=== PATIENT | female | born 1960 | race Caucasian/White ===

== ENCOUNTER 2022-09-02 11:06 | Outpatient (CLI) | payer BC, OTHER, SELFPAY ==
--- NOTE | ~2022-09-02 | CT_ITS ---
EXAMINATION: CT foot LT wo con DATE: 09/02/2022 11:32 INDICATION: Left foot pain TECHNIQUE: High resolution computed tomography (CT) of the left foot and ankle was performed without intravenous contrast. Additional sagittal and coronal reconstructions were performed. Automated expos ure control and iterative reconstruction technique were employed. The dose-length product was 402.27 mGy-cm. COMPARISON: None FINDINGS: Nondisplaced intra-articular fracture along the plantar margin of the base of the first metatarsal an d adjacent plantar rim of the medial cuneiform. Mildly impacted mildly comminuted intra-articular fra cture at the base of the second metatarsal and the adjacent lateral margin of the dorsal rim of the m edial cuneiform. Nondisplaced intra-articular fracture at the base of the third metatarsal. No other fractures identified. Alignment remains near-anatomic. No subluxation at the tarsal metatarsal joints . 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 Mild subcu taneous edema over the dorsum of the mid and forefoot. IMPRESSION: 1. Nondisplaced fractures at the base of the first-third metatarsals and along the distal articular s urface of the medial cuneiform. Reviewed, dictated and finalized at location A. IMPRESSION: 1. Nondisplaced fractures at the base of the first-third metatarsals and along the distal articular surface of the medial cuneiform.
== END 2022-09-02 11:07 | disposition home or self-care (01) ==
PROVIDERS: PCP Internal Medicine
DX: S92.315A Nondisplaced fracture of first metatarsal bone, left foot, initial encounter for closed fracture (principal); S92.325A Nondisplaced fracture of second metatarsal bone, left foot, initial encounter for closed fracture; S92.335A Nondisplaced fracture of third metatarsal bone, left foot, initial encounter for closed fracture; X58.XXXA Exposure to other specified factors, initial encounter
CPT/HCPCS: 73700

== ENCOUNTER 2023-07-26 02:12 | Emergency (ER) | payer OTHER, SELFPAY ==
--- NOTE | ~2023-07-26 | CT_ITS ---
EXAMINATION: CT abdomen pelvis w con DATE: 07/26/2023 03:34 INDICATION: Right-sided abdominal pain for 2 days TECHNIQUE: Computed tomography (CT) of the abdomen and pelvis was performed with 100 CC Omnipaque 350 intravenous contrast. Automated exposure control and iterative reconstruction technique were employe d. Exam dose: 372.84 mGy-cm total exam DLP. COMPARISON: None. FINDINGS: Minimal predominantly basilar lower lobe atelectasis at the lung bases. No pulmonary consol idation. Normal heart size. No pericardial or pleural effusion. Very small sliding hiatal hernia. Bilateral breast implants. There is a calcified granuloma of the liver and another of the spleen consistent with old granulomato us disease. No hepatic, splenic, pancreatic, adrenal or renal space occupying mass lesion is detected . 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 No urinary tract calculus or hydr oureteronephrosis. The urinary bladder, uterus and adnexal regions are unremarkable. Normal caliber of the abdominal aorta. No intraperitoneal or retroperitoneal or pelvic mass lesion or adenopathy or ascites is noted. Normal appendix. No bowel obstruction, bowel wall thickening, pneumatosis or intraperitoneal free air is detected. Small fat-containing umbilical hernia. Moderate anterior wedge compression fracture deformity of T12 appears chronic. Moderate severe anterior wedge compression fracture deformity of L5 likewise appears chronic. IMPRESSION: Normal appendix Likely chronic moderate T12 and moderately severe L5 compression fractures Reviewed, dictated and finalized at Location A. Reviewed, dictated and finalized at location A.
[2023-07-26 02:17] VITALS: BP 167/69; PULSE 68; RESP 18; O2SAT 100
[2023-07-26 02:31] VITALS: BP 167/69; PULSE 78; RESP 18; TEMP 36.9; O2SAT 100
[2023-07-26] MEDS: MORPHINE SULFATE (*CRX) 4 MG/ML INJ IV PUSH (02:34)
[2023-07-26] MEDS: ONDANSETRON INJ 4 MG/2 ML VIAL IV PUSH (02:34)
[2023-07-26] MEDS: SODIUM CHLORIDE 0.9% IV 1,000 ML 999 ML IV CONT (02:35)
[2023-07-26 02:37] LABS: Basophils Percent Auto 0.4 % (0.2-1.2); Eosinophils Absolute Auto 0.5 K/mm3 (0-0.3); Eosinophils Percent Auto 7.4 % (0-4.4); Hematocrit 45.2 % (37.0-47.0); Hemoglobin 14.3 g/dL (12.0-15.0); Immature Granulocyte Absolute 0.01 K/mm3 (0.00-0.031); Immature Granulocyte Percent A 0.1 % (0-0.5); Lymphocytes Absolute Auto 1.94 K/mm3 (0.9-3.2); Lymphocytes Percent Auto 27.5 % (18.3-44.2); Mean Corpuscular HGB Conc 31.6 g/dl (32-36); Mean Corpuscular Hemoglobin 29.5 pg (26-34); Mean Corpuscular Volume 93.2 fl (80-100); Mean Platelet Volume 10.4 fl (7.4-10.4); Monocytes Absolute Auto 0.6 K/mm3 (0.1-0.6); Monocytes Percent Auto 8.8 % (2.6-8.5); Neutrophils Absolute Auto 3.9 K/mm3 (1.3-6.7); Neutrophils Percent Auto 55.8 % (45.5-73.1); Platelet Count Result 280 k/mm3 (150-375); Red Blood Count 4.85 M/mm3 (4.2-5.4); Red Cell Distribution Width 13.2 % (11.5-14.5); White Blood Count 7.1 K/mm3 (4.5-10.0)
[2023-07-26 02:46] LABS: Lactic Acid Reflex 1.1 mmol/L (0.7-2.0)
[2023-07-26 03:00] VITALS: BP 135/69; PULSE 68; RESP 18; O2SAT 100
[2023-07-26 03:16] LABS: Alanine Aminotransferase 14 U/L (6-35); Albumin Level 4.1 g/dL (3.5-5.1); Alkaline Phosphatase 92 U/L (38-126); Anion Gap 5 mmol/L (4-12); Aspartate Amino Transferase 17 U/L (14-36); Bilirubin,Total 0.4 mg/dL (0.2-1.3); Blood Urea Nitrogen 13 mg/dL (7-17); Calcium 8.9 mg/dL (8.4-10.2); Carbon Dioxide 29 mmol/L (22-30); Chloride 107 mmol/L (98-107); Estimated CRCL calculation 60 ml/min; Estimated Glomerular Filt Rate > 60; Glucose 101 mg/dL (65-110); Lipase 114 U/L (23-300); Potassium 4.1 mmol/L (3.4-5.0); Sodium 141 mmol/L (137-145)
[2023-07-26 03:32] LABS: Appearance Urine Clear (Clear); Bacteria Urine None Seen /hpf; Bilirubin Urine Negative (Negative); Blood Urine Negative (Negative); Color Urine Yellow (Yellow); Glucose Urine UA Negative (Negative); Ketones Urine Negative (Negative); Leukocyte Esterase Ur 1+ LEU/UL (Negative); Need Manual Microscopic Reviewed; Nitrate Urine Negative (Negative); Non Pathogenic Casts 0-2; Protein Urine Negative (Negative); RBC Urine 0-2 /hpf (0-2); Specific Grav Ur 1.006 (1.001-1.035); Squamous Epithelial Cell Urine None Seen /hpf (Few); Urobilinogen Urine 0.2 mg/dL (<2.0); WBC Urine 0-5 /hpf (0-3)
[2023-07-26 03:33] LABS: Add Urine Microscopic? YES
--- NOTE | 2023-07-26 04:12 | ED.GENADULT ---
HPI - General Adult General Chief complaint: Abdominal Pain Stated complaint: abd pain Time Seen by Provider: 07/26/23 02:17 History of Present Illness HPI narrative: Patient is a 63-year-old female who presents emergency department with chief complaint of abdominal pain. Patient reports that for several days she has 7 pain in the right upper quadrant radiating to the back patient reports that the pain is not improved by anything denies vomiting denies diarrhea patient reports no prior intra-abdominal surgeries Related Data Allergies Allergy/AdvReac Type Severity Reaction Status Date / Time Sulfa (Sulfonamide Allergy Intermediate VOMITING Verified 03/25/16 17:43 Antibiotics) MEPERIDINE HCL AdvReac Unknown NAUSEA/VOMI Uncoded 03/25/16 17:43 TING Review of Systems Review of Systems: A 10 system review of systems was completed on the patient and is negative except for what is stated in the HPI. Nursing and ancillary documentation was reviewed. PMFSH Comments mastectomy Exam Narrative: GENERAL: Well-appearing, well-nourished, and in no acute distress. HEAD: Normocephalic, atraumatic. EYES: PERRLA and EOMI. ENT: Nares clear, no rhinorrhea or epistaxis. Mucous membranes moist. NECK: Supple. CHEST: Clear to auscultation. No respiratory distress. HEART: Regular rate and rhythm. No murmur heard. Normal peripheral pulses. ABDOMEN: Soft, tenderness to palpation right upper quadrant, nondistended, normal active bowel sounds. EXTREMITIES: Normal range of motion. No edema. SKIN: Warm, dry, no rash. NEURO: No focal deficits. Alert and oriented x3. PSYCH: Normal mood and affect. Course Vital Signs Vital signs: Vital Signs Pulse Rate 68 07/26/23 02:17 Respiratory Rate 18 07/26/23 02:17 Blood Pressure 167/69 H 07/26/23 02:17 Pulse Oximetry 100 07/26/23 02:17 Temperature 36.9 C 07/26/23 02:31 Pulse Rate 64 07/26/23 05:37 Respiratory Rate 14 07/26/23 05:37 Blood Pressure 128/61 07/26/23 05:37 Pulse Oximetry 100 07/26/23 05:37 Oxygen Delivery Room Air 07/26/23 02:31 Medical Decision Making [facility] Narrative Medical decision making narrative: differential diagnosis includes diverticulitis, colitis, cholecystitis, intra-abdominal infection laboratory studies were obtained on the patient showed a white count of 7.1 hemoglobin is 14.3 electrolytes are within normal limits liver enzymes are within normal limits lipase was normal urinalysis showed no evidence UTI CT scan of the abdomen pelvis showed no acute abnormality patient was started on a prescription for Bentyl and will be referred to her primary care provider to follow up. The patient should return to the emergency department if her symptoms worsen Vital Signs Vital Signs: Vital Signs Pulse Rate 68 07/26/23 02:17 Respiratory Rate 18 07/26/23 02:17 Blood Pressure 167/69 H 07/26/23 02:17 Pulse Oximetry 100 07/26/23 02:17 Temperature 36.9 C 07/26/23 02:31 Pulse Rate 64 07/26/23 05:37 Respiratory Rate 14 07/26/23 05:37 Blood Pressure 128/61 07/26/23 05:37 Pulse Oximetry 100 07/26/23 05:37 Oxygen Delivery Room Air 07/26/23 02:31 Lab Data 07/26/23 02:28 07/26/23 02:53 Labs: Lab Results 07/26/23 07/26/23 07/26/23 Range/Units 02:28 02:53 02:54 WBC 7.1 (4.5-10.0) K/mm3 RBC 4.85 (4.2-5.4) M/mm3 Hgb 14.3 (12.0-15.0) g/dL Hct 45.2 (37.0-47.0) % MCV 93.2 (80-100) fl MCH 29.5 (26-34) pg MCHC 31.6 L (32-36) g/dl RDW 13.2 (11.5-14.5) % Plt Count 280 (150-375) k/mm3 MPV 10.4 (7.4-10.4) fl Immature Gran % (Auto) 0.1 (0-0.5) % Neut % (Auto) 55.8 (45.5-73.1) % Lymph % (Auto) 27.5 (18.3-44.2) % [place] % (Auto) 8.8 H (2.6-8.5) % Eos % (Auto) 7.4 H (0-4.4) % Baso % (Auto) 0.4 (0.2-1.2) % Lymph # (Auto) 1.94 (0.9-3.2) K/mm3 [place] # (Auto) 0.6 (0.1
[2023-07-26 05:37] VITALS: BP 128/61; PULSE 64; RESP 14; O2SAT 100
== END 2023-07-26 06:07 | disposition home or self-care (01) ==
PROVIDERS: Emergency Provider Emergency Medicine; PCP Internal Medicine
DX: R10.11 Right upper quadrant pain (principal)
CPT/HCPCS: 36415; 74177; 80053; 81001; 83605; 83690; 85025; 96361; 96374; 96375; 99284; J2270; J2405; J7030; Q9967

== ENCOUNTER 2023-07-26 22:20 | Observation (INO) | payer OTHER, SELFPAY ==
--- NOTE | ~2023-07-26 | CT_ITS ---
EXAMINATION: CTA abdomen pelvis DATE: 07/27/2023 14:14 INDICATION: Abdominal pain. Nausea and vomiting. TECHNIQUE: Computed tomographic angiography (CTA) of the abdomen and pelvis was performed with 100 mL Omnipaque-350 intravenous contrast. Automated exposure control and iterative reconstruction techniqu e were employed. The dose-length product was 433.05 mGy-cm. Maximum intensity projection 3D-reconstru ctions of the aorta and other arteries were constructed by the technologist on a separate workstation . COMPARISON: CT abdomen and pelvis 07/26/2023 FINDINGS: The visualized portions of the lung bases demonstrate mild atelectasis. No pleural effusion . The heart size is normal. No pericardial effusion. There are bilateral breast implants. The liver i s normal. Calcifications in the spleen are consistent with old granulomatous disease. There is contra st in the gallbladder, which is normal in size. The adrenal glands, pancreas, and kidneys are normal. There are no dilated loops of bowel. The appendix is normal. Subcutaneous fat stranding may be secon tiffanie to abdominoplasty. There are no pathologically enlarged lymph nodes. There is no free intraperit monae fluid. There is new subcutaneous gas in right anterior abdominal wall, which may be from an inj ection. Abdominal aorta is normal in caliber. There is no significant stenosis of celiac axis, superi or mesenteric artery, the renal arteries, or inferior mesenteric artery. There is a chronic compressi on fracture of T12. There is a chronic burst fracture of L5. There is mild lumbar spondylosis. IMPRESSION: 1. No significant arterial occlusive disease. Reviewed, dictated and finalized at location E.
--- NOTE | ~2023-07-26 | NM_ITS ---
EXAMINATION: NM hepatobiliary w pharm DATE: 07/29/2023 10:24 INDICATION: Right upper quadrant abdominal pain. COMPARISON: CT abdomen and pelvis 07/27/2023 TECHNIQUE: 5.5 mCi Tc-99m mebrofenin (Choletec) was administered intravenously. Scintigraphic images of the abdomen were obtained for one hour. Then, 1.4 mcg sincalide (Kinevac) IV was administered, an d imaging was continued for 30 minutes. FINDINGS: There is normal clearance of radiotracer from the blood pool. There is homogeneous tracer u ptake by the liver. Activity progresses to the bowel and gallbladder. Gallbladder ejection fraction (GBEF) was 25%. Note that most patients with gallbladder dysfunction have GBEF < 35%, which overlaps with the broad normal range of 10-90%. IMPRESSION: 1. Gallbladder ejection fraction in the lower range of normal. Note that this value overlaps with th e range of values that may be seen with gallbladder dysfunction and/or chronic cholecystitis if there is appropriate clinical correlation. Reviewed, dictated and finalized at location A. IMPRESSION: 1. Gallbladder ejection fraction in the lower range of normal. Note that this value overlaps with the range of values that may be seen with gallbladder dysfu nction and/or chronic cholecystitis if there is appropriate clinical correlatio nZac
--- NOTE | ~2023-07-26 | US_ITS ---
US abdomen limited INDICATION: Right upper quadrant pain PROCEDURE: Realtime right upper abdominal ultrasound. COMPARISON: No prior studies for comparison. FINDINGS: The pancreas is normal without focal mass or pancreatic ductal dilation. Liver echotexture is normal without focal mass or intrahepatic biliary dilatation. There is normal directional flow i n the portal vein. The gallbladder is normal without stones, gallbladder wall thickening or pericholecystic fluid. Comm on bile duct measures 2 mm. No sonographic Frias's sign. IMPRESSION: 1: Normal limited abdominal ultrasound. Reviewed, dictated and finalized at location B.
--- NOTE | ~2023-07-26 | MR_ITS ---
EXAMINATION: MR lumbar spine wo con DATE: 07/29/2023 11:56 INDICATION: Back pain. TECHNIQUE: Magnetic resonance imaging (MRI) of the lumbar spine was performed without intravenous con trast. Sequences included sagittal T2-weighted FSE, sagittal T2-weighted FS FSE, sagittal T1-weighted FSE, and axial T2-weighted FSE. COMPARISON: None FINDINGS: There is 10 degrees dextroscoliosis of lumbar spine. There is a chronic compression fractur e of T12 with 1/5 loss of height. There is a chronic burst fracture of L5 with 2/5 loss of height and retropulsion of bone 2 mm into central spinal canal. Intervertebral disc heights are normal. The dis bishop spinal cord signal intensity is normal. The conus medullaris is at L1. The following disc levels are specifically discussed: L1-L2: The disc does not extend beyond the endplate margin. There is mild bilateral facet joint osteo arthritis. There is no neural foraminal stenosis. There is no central canal stenosis. L2-L3: The disc does not extend beyond the endplate margin. There is severe bilateral facet joint ost eoarthritis. There is no neural foraminal stenosis. There is no central canal stenosis. L3-L4: The disc does not extend beyond the endplate margin. There is moderate right and mild left fac et joint osteoarthritis. There is no neural foraminal stenosis. There is no central canal stenosis. L4-L5: The disc is bulging. There is moderate bilateral facet joint osteoarthritis. There is moderate right and mild left neural foraminal stenosis. There is mild central canal stenosis. L5-S1: The disc does not extend beyond the endplate margin. There is mild bilateral facet joint osteo arthritis. There is no neural foraminal stenosis. There is no central canal stenosis. IMPRESSION: 1. Moderate right neural foraminal stenosis at L4-L5. Otherwise mild lumbar spondylosis. 2. Lumbar dextroscoliosis. Reviewed, dictated and finalized at location A. IMPRESSION: 1. Moderate right neural foraminal stenosis at L4-L5. Otherwise mild lumbar spo ndylosis. 2. Lumbar dextroscoliosis.
[2023-07-26 22:22] VITALS: BP 162/67; PULSE 72; RESP 18; TEMP 36.3; O2SAT 100
[2023-07-26 22:49] LABS: Alanine Aminotransferase 16 U/L (6-35); Albumin Level 4.6 g/dL (3.5-5.1); Alkaline Phosphatase 109 U/L (38-126); Anion Gap 6 mmol/L (4-12); Aspartate Amino Transferase 20 U/L (14-36); Bilirubin,Total 0.6 mg/dL (0.2-1.3); Blood Urea Nitrogen 9 mg/dL (7-17); Calcium 9.1 mg/dL (8.4-10.2); Carbon Dioxide 27 mmol/L (22-30); Chloride 103 mmol/L (98-107); Estimated CRCL calculation 67 ml/min; Estimated Glomerular Filt Rate > 60; Glucose 123 mg/dL (65-110); Lipase 110 U/L (23-300); Potassium 4.2 mmol/L (3.4-5.0); Sodium 136 mmol/L (137-145)
[2023-07-26] MEDS: MORPHINE SULFATE (*CRX) 4 MG/ML INJ IV PUSH (23:30)
[2023-07-26] MEDS: ONDANSETRON INJ 4 MG/2 ML VIAL IV PUSH (23:30)
[2023-07-26] MEDS: SODIUM CHLORIDE 0.9% IV 1,000 ML 999 ML IV CONT (23:30)
[2023-07-26 23:36] LABS: Basophils Percent Auto 0.2 % (0.2-1.2); Eosinophils Absolute Auto 0.2 K/mm3 (0-0.3); Eosinophils Percent Auto 2.5 % (0-4.4); Hematocrit 43.7 % (37.0-47.0); Immature Granulocyte Absolute 0.03 K/mm3 (0.00-0.031); Immature Granulocyte Percent A 0.4 % (0-0.5); Lymphocytes Absolute Auto 1.21 K/mm3 (0.9-3.2); Lymphocytes Percent Auto 14.1 % (18.3-44.2); Mean Corpuscular Hemoglobin 29.6 pg (26-34); Mean Corpuscular Volume 92.4 fl (80-100); Mean Platelet Volume 10.6 fl (7.4-10.4); Monocytes Absolute Auto 0.4 K/mm3 (0.1-0.6); Monocytes Percent Auto 4.2 % (2.6-8.5); Neutrophils Absolute Auto 6.7 K/mm3 (1.3-6.7); Neutrophils Percent Auto 78.6 % (45.5-73.1); Platelet Count Result 287 k/mm3 (150-375); Red Blood Count 4.73 M/mm3 (4.2-5.4); Red Cell Distribution Width 12.8 % (11.5-14.5); White Blood Count 8.6 K/mm3 (4.5-10.0)
--- NOTE | 2023-07-27 00:37 | ED.ABDPAIN ---
HPI - Abdominal Pain General Chief Complaint: Abdominal Pain Stated Complaint: abdominal pain/ back pain Time Seen by Provider: 07/26/23 23:13 History of Present Illness HPI narrative: patient is 81-year-old female presents emergency department with chief complaint of right upper quadrant pain. Patient reports she was seen in the emergency department yesterday and was actually seen by myself. That time the patient had laboratory studies UA and CT scan that showed no acute abnormalities. The patient does report that she has prior history of compression fractures in her back. Patient denies rash denies fever reports that today she started having nausea vomiting and not been able to keep fluids down. Related Data Allergies Allergy/AdvReac Type Severity Reaction Status Date / Time Sulfa (Sulfonamide Allergy Intermediate VOMITING Verified 03/25/16 17:43 Antibiotics) MEPERIDINE HCL AdvReac Unknown NAUSEA/VOMI Uncoded 03/25/16 17:43 TING Review of Systems Review of Systems: A 10 system review of systems was completed on the patient and is negative except for what is stated in the HPI. Nursing and ancillary documentation was reviewed. Exam Narrative: GENERAL: Well-appearing, well-nourished, and in no acute distress. HEAD: Normocephalic, atraumatic. EYES: PERRLA and EOMI. ENT: Nares clear, no rhinorrhea or epistaxis. Mucous membranes moist. NECK: Supple. CHEST: Clear to auscultation. No respiratory distress. HEART: Regular rate and rhythm. No murmur heard. Normal peripheral pulses. ABDOMEN: Soft, Tenderness palpation the right upper quadrant, nondistended, normal active bowel sounds. EXTREMITIES: Normal range of motion. No edema. SKIN: Warm, dry, no rash. NEURO: No focal deficits. Alert and oriented x3. PSYCH: Normal mood and affect. Course Vital Signs Vital signs: Vital Signs Temperature 36.3 C L 07/26/23 22:22 Pulse Rate 72 07/26/23 22:22 Respiratory Rate 18 07/26/23 22:22 Blood Pressure 162/67 H 07/26/23 22:22 Pulse Oximetry 100 07/26/23 22:22 Oxygen Delivery Room Air 07/26/23 22:22 Temperature 36.3 C L 07/26/23 22:22 Pulse Rate 72 07/26/23 22:22 Respiratory Rate 18 07/26/23 22:22 Blood Pressure 162/67 H 07/26/23 22:22 Pulse Oximetry 100 07/26/23 22:22 Oxygen Delivery Room Air 07/26/23 22:22 MDM - Abdominal Pain MDM Narrative Medical decision making narrative: differential diagnosis includes shingles, biliary colic, abdominal pain of unknown etiology, sepsis laboratory studies were obtained on the patient showed normal CBC normal CMP lipase was normal. The CT was reviewed from yesterday which showed no additional abnormalities from a with the [facility] radiologist read the CT scan. The patient was given pain control antiemetics fluids. Given the patient has returned to the emergency department patient will be admitted for observation for right upper quadrant ultrasound Lab Data 07/26/23 22:33 07/26/23 22:34 Labs: Lab Results 07/26/23 07/26/23 Range/Units 22:33 22:34 WBC 8.6 (4.5-10.0) K/mm3 RBC 4.73 (4.2-5.4) M/mm3 Hgb 14.0 (12.0-15.0) g/dL Hct 43.7 (37.0-47.0) % MCV 92.4 (80-100) fl MCH 29.6 (26-34) pg MCHC 32.0 (32-36) g/dl RDW 12.8 (11.5-14.5) % Plt Count 287 (150-375) k/mm3 MPV 10.6 H (7.4-10.4) fl Immature Gran % (Auto) 0.4 (0-0.5) % Neut % (Auto) 78.6 H (45.5-73.1) % Lymph % (Auto) 14.1 L (18.3-44.2) % [place] % (Auto) 4.2 (2.6-8.5) % Eos % (Auto) 2.5 (0-4.4) % Baso % (Auto) 0.2 (0.2-1.2) % Lymph # (Auto) 1.21 (0.9-3.2) K/mm3 [place] # (Auto) 0.4 (0.1-0.6) K/mm3 Eos # (Auto) 0.2 (0-0.3) K/mm3 Baso # (Auto) 0.0 (0.0-0.1) K/mm3 Abs Immat Gran (auto) 0.03 (0.00-0.031) K/mm3 Absolute Neuts (auto) 6.7 (1.3-6.7) K/mm3 Absolute Nucleated RBC 0.000 (0.0-0.012) K/mm3 Nucleated RBC % 0.0 (0.0-0.2) % So
--- NOTE | 2023-07-27 00:42 | PM.IMHP ---
H&P: HPI History of Present Illness Date/Time: 07/27/23 00:42 Chief Complaint: abdominal pain Narrative: patient is a 63-year-old female presented to the emergency room complaining of right upper quadrant pain. Patient was seen in the emergency room yesterday as well with a similar complaint was sent home but she came back because of worsening abdominal pain with nausea no vomiting no chest pain no shortness for breath no skin rash or or indigestion. Patient defines pain mostly in the right upper quadrant on deep palpation no previous history of gallstones or pancreatitis in the past Review of Systems Review of Systems: All systems reviewed & are unremarkable except as noted in HPI and below PMFSH Social History Social History Smoking status: Never smoker Second hand tobacco smoke exposure: No Alcohol intake: never Substance use: never Substance use type: does not use Do You Feel Safe in your Home?: Yes Lack of Transportation: No Lack of Food: Never True Current Housing: I Have Housing Concerned About Future Housing: No Difficulty Paying Gas/Electric Bills: No Difficulty Paying for Meds: No Currently Unemployed: No Education: High School Diploma/GED Difficulty w/ Childcare or Family Care: No Spiritual care concerns: No Meds Home Medications and Allergies Home Medications Medication Instructions Recorded Confirmed Type dicyclomine 20 mg tablet 20 mg PO QID PRN abdominal 07/26/23 07/27/23 Rx discomfort #20 tabs ondansetron 4 mg disintegrating 4 mg PO Q8H PRN nausea and 07/26/23 07/27/23 Rx tablet vomiting #10 tabs meloxicam 7.5 mg tablet 7.5 mg PO DAILY 07/27/23 07/27/23 History rosuvastatin 5 mg tablet (Crestor) 5 mg PO DAILY 07/27/23 07/27/23 History Allergies Allergy/AdvReac Type Severity Reaction Status Date / Time Sulfa (Sulfonamide Allergy Intermediate VOMITING Verified 03/25/16 17:43 Antibiotics) MEPERIDINE HCL AdvReac Unknown NAUSEA/VOMI Uncoded 03/25/16 17:43 TING Vital Signs Vital Signs - 24 hr 07/26/23 22:22 Temperature 36.3 C L Pulse Rate 72 Respiratory Rate 18 Blood Pressure 162/67 H Pulse Oximetry 100 Oxygen Delivery Room Air Exam Narrative: GENERAL: Well appearing, no acute distress. HEAD: Normocephalic, atraumatic. NECK: Supple. No adenopathy, no masses. RESPIRATORY: respirations nonlabored. , no rales, wheezing. CARDIOVASCULAR: Regular rate and rhythm without murmurs, . Peripheral pulses 2+ and equal bilaterally. ABDOMINAL: Soft, right upper quadrant tender, nondistended, no hepatosplenomegaly. Normoactive BS. MUSCULOSKELETAL: no Epigastric and no hypochondrial tenderness SKIN: Warm, dry, NEURO: A&O X3. Moves all extremities H&P: Results Labs Labs: Short CBC 07/26/23 Range/Units 22:33 WBC 8.6 (4.5-10.0) K/mm3 Hgb 14.0 (12.0-15.0) g/dL Hct 43.7 (37.0-47.0) % Plt Count 287 (150-375) k/mm3 BMP 07/26/23 22:34 Sodium 136 L Potassium 4.2 Chloride 103 Carbon Dioxide 27 BUN 9 Creatinine 0.70 Glucose 123 H Calcium 9.1 Liver Function 07/26/23 Range/Units 22:34 Total Bilirubin 0.6 (0.2-1.3) mg/dL AST 20 (14-36) U/L ALT 16 (6-35) U/L Alkaline Phosphatase 109 (38-126) U/L Albumin 4.6 (3.5-5.1) g/dL Imaging CT scan - abdomen: My impression: IMPRESSION:? Normal appendix Likely chronic moderate T12 and moderately severe L5 compression fractures Assessment and Plan Assessment and plan (1) Right upper quadrant abdominal pain: Code(s): R10.11 - Right upper quadrant pain Status: Acute Plan acute cholecystitis versus cholelithiasis IV fluid resuscitation Monitor lactic acid levels Repeat CBC CMP Two sets of Blood cultures urine cultures C-reactive protein, procalcitonin level. ultrasound of the gallbladder IV antibiotics Zosyn may need surgical con
[2023-07-27] MEDS: PIPERACILLN/TAZ 3.375GM/NS50ML 3.375 GM/50 ML BAG IVPB ×2 (01:11→08:25)
[2023-07-27] MEDS: SODIUM CHLORIDE 0.9% IV 1,000 ML 125 ML IV CONT ×3 (01:11→20:21)
[2023-07-27 01:30] VITALS: BP 143/65; PULSE 83; RESP 14; O2SAT 98
[2023-07-27 02:10] VITALS: BP 126/63; PULSE 64; RESP 20; TEMP 36.6; O2SAT 100
[2023-07-27 02:12] VITALS: BMI 26.9; BMI 27.6
[2023-07-27] MEDS: MORPHINE SULFATE (*CRX) 2 MG/ML INJ IV PUSH ×5 (02:24→20:22)
[2023-07-27 05:41] LABS: Alanine Aminotransferase 12 U/L (6-35); Albumin Level 3.7 g/dL (3.5-5.1); Alkaline Phosphatase 79 U/L (38-126); Anion Gap 7 mmol/L (4-12); Aspartate Amino Transferase 19 U/L (14-36); Bilirubin,Total 0.6 mg/dL (0.2-1.3); Blood Urea Nitrogen 7 mg/dL (7-17); Calcium 8.2 mg/dL (8.4-10.2); Carbon Dioxide 22 mmol/L (22-30); Chloride 110 mmol/L (98-107); Estimated CRCL calculation 78 ml/min; Estimated Glomerular Filt Rate > 60; Glucose 100 mg/dL (65-110); Potassium 4.1 mmol/L (3.4-5.0); Sodium 139 mmol/L (137-145)
[2023-07-27 06:00] VITALS: BP 108/62; PULSE 62; RESP 20; TEMP 36.2; O2SAT 97
--- NOTE | 2023-07-27 07:28 | PM.IMPN ---
Progress Note: A&P Assessment and Plan (1) Right upper quadrant abdominal pain: Code(s): R10.11 - Right upper quadrant pain Status: Acute Assessment and Plan: Unclear etiology. Complains of right upper quadrant abdominal pain that travels to her back with nausea and vomiting. White blood cell count normal Lactic acid was normal Lipase normal CT abdomen and pelvis non con was normal Right upper quadrant ultrasound normal CTA abdomen and pelvis ordered Morphine p.r.n. and Bentyl for pain Zofran and Compazine p.r.n. for pain IV fluids at 125 mL an hour Stopped antibiotics as patient does not have a white count and no evidence of infection on imaging Low suspicion for a cardiac insult but given lack of clear etiology will check troponin and EKG GI consulted and rec's appreciated. May need EGD? (2) HTN (hypertension): Code(s): I10 - Essential (primary) hypertension Status: Acute Assessment and Plan: Elevated blood pressure on admission. 167/69. suspect pain related patient does not have a history of high blood pressure and her blood pressures are normal stop metoprolol (3) Compression fracture: Status: Acute Assessment and Plan: history of severe compression fracture L5 patient is advised to get a DEXA scan and consult pain clinic Plan Feeding: NPO Analgesia: morphine Thromboembolic prophylaxis: Lovenox Ulcer prophylaxis: Protonix Lines: PIV Antibiotics: na Disposition: home when clinically better Subjective Date/time seen: 07/27/23 07:28 Interval history: Patient is a 63-year-old female presented to the emergency room complaining of right upper quadrant pain.? Patient was seen in the emergency room yesterday as well with a similar complaint was sent home but she came back because of worsening abdominal pain with nausea no vomiting no chest pain no shortness for breath no skin rash or? or indigestion.? Patient defines pain mostly in the right upper quadrant on deep palpation no previous history of gallstones or pancreatitis? in the past. 07/26: Patient is seen today resting in bed with her son and at bedside. She appears unwell. She states she is continuing to have this right lateral abdominal pain that travels to her back with associated nausea and dry heaving. She is receiving pain medications and nausea medications that are helping but her symptoms are not improving. CT of her abdomen from 07/25 with no acute process. Her right upper quadrant ultrasound was negative for acute cholecystitis for bile duct dilatation. Her lipase and lactic were both negative on admission. Will proceed with CT angiogram of her abdomen and pelvis to rule out mesenteric clot. Given unclear etiology of her pain and nausea, vomiting I will go ahead and check a troponin and EKG. I have also reached out to GI to ask them for a consult. Patient may need EGD to help with differential diagnosis. Review of Systems Review of Systems: All systems reviewed & are unremarkable except as noted in HPI and below Exam Narrative: General: Appears unwell, appears in pain, appears stated age. HEENT: normocephalic, atraumatic. Mucous membranes dry, EOMI, PERRLA, bilateral sclera anicteric, no conjunctival injection. Neck supple without JVD, lymphadenopathy, or bruit. Respiratory: clear to auscultation bilaterally. No rales/rhonic/wheezes. Cardiovascular: Regular rate and rhythm, normal S1-S2 upon auscultation. No murmurs, rubs, or clicks. PMI is nondisplaced, capillary refill less than 3 second. Abdomen: Soft, round, no pulsatile masses, nondistended and moderately tender to right upper quadrant radiating to back.. No rebound, no guarding. No CVA tenderness, no hepatosplenomegaly. Bowel sounds present to all four quadrants. No high pitch or tinkling sounds, resonant to percussion. Extremities: No cyanosis, clubbing, or edema present. Pulses are palpable 2/2. Active ROM to all
[2023-07-27] MEDS: ENOXAPARIN 40 MG/0.4 ML SYRINGE SUB-Q (08:25)
[2023-07-27] MEDS: ROSUVASTATIN 5 MG TABLET PO (08:25)
[2023-07-27] MEDS: ONDANSETRON INJ 4 MG/2 ML VIAL IV PUSH ×2 (09:36→13:33)
[2023-07-27 13:50] VITALS: BP 138/61; PULSE 69; RESP 18; TEMP 36.6; O2SAT 99
--- NOTE | 2023-07-27 14:13 | ECG_ITS ---
[facility] [address] Test Date: 2023-07-27 Pat Name: Daysi Rodriguez Department: Room: 252 Gender: F Site Engineer: ELOINA : 1960 Requested By: Rupa Miller Order Number: [id number] Wade MD: Devon Carbajal M.D. Measurements Intervals [place] Rate: 68 P: 49 NE: 168 QRS: 58 QRSD: 96 T: 39 QT: 411 QTc: 437 Interpretive Statements SINUS RHYTHM POSSIBLE RIGHT VENTRICULAR CONDUCTION DELAY [RSR (QR) IN V1/V2] BORDERLINE ECG No previous ECG available for comparison Electronically Signed On 07-28-2023 07:18:55 CDT by Devon Carbajal M.D.
[2023-07-27] MEDS: PROCHLORPERAZINE EDISYLATE 10 MG/2 ML VIAL IV PUSH ×2 (14:34→20:21)
[2023-07-27] MEDS: PANTOPRAZOLE SODIUM IV 40 MG VIAL IV PUSH (14:38)
[2023-07-27 14:42] LABS: Lactic Acid Reflex 1.3 mmol/L (0.7-2.0)
[2023-07-27 14:54] LABS: Troponin I < 0.012 ng/mL (0.000-0.034)
[2023-07-27 19:40] VITALS: PULSE 67; RESP 19; O2SAT 98
[2023-07-27] MEDS: DICYCLOMINE HCL 10 MG CAPSULE 20 MG PO (20:28)
[2023-07-27 21:20] VITALS: BP 135/64; PULSE 68; RESP 18; TEMP 36.4; O2SAT 98
[2023-07-28] VITALS (9 sets, daily range): BP systolic 138–158; BP diastolic 60–70; PULSE 75–81; RESP 16–19; TEMP 35.7–37.1; O2SAT 98–100
[2023-07-28] MEDS: SODIUM CHLORIDE 0.9% IV 1,000 ML 125 ML IV CONT ×3 (04:46→20:40)
[2023-07-28] MEDS: ACETAMINOPHEN 325 MG TABLET 650 MG PO (04:47)
[2023-07-28] MEDS: DICYCLOMINE HCL 10 MG CAPSULE 20 MG PO (04:47)
[2023-07-28 05:31] LABS: Basophils Percent Auto 0.2 % (0.2-1.2); Eosinophils Absolute Auto 0.1 K/mm3 (0-0.3); Eosinophils Percent Auto 0.7 % (0-4.4); Hematocrit 38.6 % (37.0-47.0); Hemoglobin 12.5 g/dL (12.0-15.0); Immature Granulocyte Absolute 0.02 K/mm3 (0.00-0.031); Immature Granulocyte Percent A 0.2 % (0-0.5); Lymphocytes Absolute Auto 1.38 K/mm3 (0.9-3.2); Lymphocytes Percent Auto 17.1 % (18.3-44.2); Mean Corpuscular HGB Conc 32.4 g/dl (32-36); Mean Corpuscular Hemoglobin 29.8 pg (26-34); Mean Corpuscular Volume 91.9 fl (80-100); Mean Platelet Volume 10.7 fl (7.4-10.4); Monocytes Absolute Auto 0.7 K/mm3 (0.1-0.6); Monocytes Percent Auto 8.2 % (2.6-8.5); Neutrophils Absolute Auto 5.9 K/mm3 (1.3-6.7); Neutrophils Percent Auto 73.6 % (45.5-73.1); Platelet Count Result 231 k/mm3 (150-375); Red Cell Distribution Width 12.6 % (11.5-14.5); White Blood Count 8.1 K/mm3 (4.5-10.0)
[2023-07-28 05:41] LABS: Alanine Aminotransferase 13 U/L (6-35); Albumin Level 3.6 g/dL (3.5-5.1); Alkaline Phosphatase 89 U/L (38-126); Anion Gap 4 mmol/L (4-12); Aspartate Amino Transferase 16 U/L (14-36); Bilirubin,Total 0.5 mg/dL (0.2-1.3); Blood Urea Nitrogen 8 mg/dL (7-17); Calcium 8.2 mg/dL (8.4-10.2); Carbon Dioxide 25 mmol/L (22-30); Chloride 110 mmol/L (98-107); Cholesterol 167 mg/dL (0-200); Estimated CRCL calculation 78 ml/min; Estimated Glomerular Filt Rate > 60; Glucose 90 mg/dL (65-110); HDL Direct 58 mg/dL; Magnesium 1.9 mg/dL (1.6-2.3); Potassium 3.4 mmol/L (3.4-5.0); Sodium 139 mmol/L (137-145); Triglycerides 88 mg/dL (<150)
[2023-07-28 05:52] LABS: LDL Cholesterol Direct 86 mg/dL
[2023-07-28] MEDS: MORPHINE SULFATE (*CRX) 2 MG/ML INJ IV PUSH ×3 (06:48→20:41)
[2023-07-28] MEDS: ONDANSETRON INJ 4 MG/2 ML VIAL IV PUSH ×3 (06:55→20:40)
--- NOTE | 2023-07-28 07:04 | PM.IMPN ---
Progress Note: A&P Assessment and Plan (1) Right upper quadrant abdominal pain: Code(s): R10.11 - Right upper quadrant pain Status: Acute Assessment and Plan: Unclear etiology. Complains of right upper quadrant abdominal pain that travels to her back with nausea and vomiting. White blood cell count normal Lactic acid was normal Lipase normal CT abdomen and pelvis non con was normal Right upper quadrant ultrasound normal CTA abdomen and pelvis ordered Morphine p.r.n. and Bentyl for pain Zofran and Compazine p.r.n. for pain IV fluids at 125 mL an hour Stopped antibiotics as patient does not have a white count and no evidence of infection on imaging Low suspicion for a cardiac insult but given lack of clear etiology will check troponin and EKG GI consulted and rec's appreciated. May need EGD? 07/27: EGD today was normal. Biopsies were taken. Continues to have moderate to severe RUQ pain traveling to her back morphine prn IVF continue prn zofran and compazine for nausea (2) Compression fracture: Status: Acute Assessment and Plan: history of severe compression fracture L5 patient is advised to get a DEXA scan and consult pain clinic 07/27: MR of thoracic and lumbar spine today Added Toradol to see if this helps with her pain CRP ordered May need brace depending on what imaging shows She has had a DEXA scan in the past which showed osteopenia but no osteoporosis. Plan Feeding: NPO Analgesia: morphine Thromboembolic prophylaxis: Lovenox Ulcer prophylaxis: Protonix Lines: PIV Antibiotics: na Disposition: home when clinically better Subjective Date/time seen: 07/28/23 07:04 Interval history: Patient is a 63-year-old female presented to the emergency room complaining of right upper quadrant pain.? Patient was seen in the emergency room yesterday as well with a similar complaint was sent home but she came back because of worsening abdominal pain with nausea no vomiting no chest pain no shortness for breath no skin rash or? or indigestion.? Patient defines pain mostly in the right upper quadrant on deep palpation no previous history of gallstones or pancreatitis? in the past. 07/26: Patient is seen today resting in bed with her son and at bedside. She appears unwell. She states she is continuing to have this right lateral abdominal pain that travels to her back with associated nausea and dry heaving. She is receiving pain medications and nausea medications that are helping but her symptoms are not improving. CT of her abdomen from 07/25 with no acute process. Her right upper quadrant ultrasound was negative for acute cholecystitis for bile duct dilatation. Her lipase and lactic were both negative on admission. Will proceed with CT angiogram of her abdomen and pelvis to rule out mesenteric clot. Given unclear etiology of her pain and nausea, vomiting I will go ahead and check a troponin and EKG. I have also reached out to GI to ask them for a consult. Patient may need EGD to help with differential diagnosis. 07/27: Mrs. Rodriguez continues to have RUQ abdominal pain that radiates to her back and nausea. She tried not taking her IV morphine to make sure the pain was still occurring and she ended up having return of the RUQ/back pain. She appears tired and weak. She had her EGD which was normal. Biopsies were take. Dr Mabry did mention possible etiology of pain could be stemming from her chronic fractures to T12 and L5. The plan as of now is to proceed with a HIDA scan and we can also get MR imaging of her lumbar and thoracic spine. Review of Systems Review of Systems: All systems reviewed & are unremarkable except as noted in HPI and below Exam Narrative: General: Appears unwell, appears in pain, appears stated age. HEENT: normocephalic, atraumatic. Mucous membranes dry, EOMI, PERRLA, bilateral sclera anicteric, no conjunctival injection. Neck supple wit
--- NOTE | 2023-07-28 08:36 | WPDGICN ---
Assessment and Plan Assessment and plan (1) Right upper quadrant abdominal pain: Code(s): R10.11 - Right upper quadrant pain Status: Acute (2) Right flank pain: Code(s): R10.9 - Unspecified abdominal pain Status: Acute (3) Nausea and vomiting: Qualifiers: Vomiting type: unspecified Qualified Code(s): R11.2 - Nausea with vomiting, unspecified Code(s): R11.2 - Nausea with vomiting, unspecified Status: Acute Plan 1) RUQ abdominal pain/nausea/vomiting: Last EGD performed approximately 5 years ago at [facility] at which time patient states she had a large gastric polyp removed? Patients sister carries a diagnosis of Crohn's disease. Patient was seen in the emergency room on July 25 for similar complaints but her symptoms became worse and she came back to the emergency room yesterday. Patient with acute onset of right upper quadrant / right flank pain since . She describes this pain as a constant stabbing sensation that has no correlation with food intake. On Friday she started having nausea and vomiting but states that it was more dry heaves, the symptoms have improved since admission. Imaging including CT, CT, and ultrasound have all been unremarkable. BMP, CBC, LFTs, and lipase all normal. Keep patient NPO EGD today if EGD is unremarkable may consider HIDA scan further recommendations to follow endoscopy 2) Personal Hx of colon polyps: Per patient's last colonoscopy performed 5 years ago at [facility] by Dr. Nettles at which time she had colon polyps removed but these endoscopy reports are not available during today's visit family history negative for CRC but her sister carries a diagnosis of Crohn's disease. She is having 1-2 formed non urgent bowel movements daily and denies any alarm symptoms such as weight loss, change in bowel habits, or rectal bleeding. Patient to proceed with colonoscopy with Dr. Nettles as outpatient Thank you very much for allowing me to share in the care of this very nice patient. This report may have been done utilizing a voice recognition system. Attempts have been made to correct errors. However, there may be uncorrected grammatical, spelling, and recognition errors present. GI Consult Note Consult date/time: 07/28/23 08:36 Reason for consult: abdominal pain HPI: Daysi Rodriguez is a 63 year old female with HTN and breast cancer requiring a double mastectomy, surgery, and chemotherapy in 2017. She presented to the ER yesterday with complaints of RUQ pain, nausea and vomiting. She was seen in the ER the day prior with similar complaints. GI was consulted for abdominal pain. Patient states that on she had an acute onset of right upper quadrant pain that radiated to her right flank. She describes this pain as a constant stabbing sensation has no correlation with food intake. On Friday she started experiencing nausea and vomiting but states that it was more dry heaving, nausea and dry heaving has improved since admission. She denies abdominal bloating, odynophagia, dysphagia, reflux, regurgitation, early satiety, unexplained weight loss, appetite loss. She is having 1-2 formed non urgent bowel movements daily prior to admission. Denies diarrhea, constipation, hematochezia, or melena she uses Advil as needed few times monthly but denies any aspirin or other anticoagulant use. ENDOSCOPY HISTORY: EGD: Per patient's last EGD performed approximately 5 years ago at [facility] and she believes she had a large gastric polyp removed, but these reports are not available today's visit COLONOSCOPY: Per patient's last colonoscopy performed 5 years ago at [facility] at which time she had polyps removed. Patient states that she is due for a 5 year repeat colonoscopy with Dr. Nettles. COLONOSCOPY: 01/20/2013 (Dr. Boudreaux) for CRC screening in the ileum, no abnor
[2023-07-28] MEDS: ENOXAPARIN 40 MG/0.4 ML SYRINGE SUB-Q (08:49)
[2023-07-28] MEDS: PANTOPRAZOLE SODIUM IV 40 MG VIAL IV PUSH (08:49)
[2023-07-28] MEDS: LACTATED RINGERS 1,000 ML 150 ML IV CONT (10:55)
--- NOTE | 2023-07-28 11:33 | WPDANESEPPF ---
Anes - Initial Pre Proc Eval Procedure: Operation Date: 07/28/23 17:00 Proposed Procedures p Esophagogastroduodenoscopy - Tanner Mckenzie MD Date/Time: 07/28/23 11:33 Surgeon: Rupa Major APRN Pre Op Diagnosis: right upper quadrant abominal pain Patient Data Age: 63 Gender: F Height: 1.6 m Weight: 70.8 kg Last Vital Signs Temp 97.1 F L 07/28/23 11:00 Pulse 78 07/28/23 11:00 Resp 19 07/28/23 11:00 BP 158/63 H 07/28/23 11:00 Pulse Ox 100 07/28/23 11:00 O2 Del Method Room Air 07/28/23 11:00 Allergies Allergy/AdvReac Type Severity Reaction Status Date / Time Sulfa (Sulfonamide Allergy Intermediate VOMITING Verified 07/28/23 10:56 Antibiotics) MEPERIDINE HCL AdvReac Unknown NAUSEA/VOMI Uncoded 07/28/23 10:56 TING Home Medications Medication Instructions Recorded Confirmed Type dicyclomine 20 mg tablet 20 mg PO QID PRN abdominal 07/26/23 07/27/23 Rx discomfort #20 tabs ondansetron 4 mg disintegrating 4 mg PO Q8H PRN nausea and 07/26/23 07/27/23 Rx tablet vomiting #10 tabs meloxicam 7.5 mg tablet 7.5 mg PO DAILY 07/27/23 07/27/23 History rosuvastatin 5 mg tablet (Crestor) 5 mg PO DAILY 07/27/23 07/27/23 History Laboratory Tests 07/27/23 07/28/23 14:28 04:56 WBC 8.1 K/mm3 (4.5-10.0) RBC 4.20 M/mm3 (4.2-5.4) Hgb 12.5 g/dL (12.0-15.0) Hct 38.6 % (37.0-47.0) MCV 91.9 fl (80-100) MCH 29.8 pg (26-34) MCHC 32.4 g/dl (32-36) RDW 12.6 % (11.5-14.5) Plt Count 231 k/mm3 (150-375) MPV 10.7 H fl (7.4-10.4) Immature Gran % (Auto) 0.2 % (0-0.5) Neut % (Auto) 73.6 H % (45.5-73.1) Lymph % (Auto) 17.1 L % (18.3-44.2) [place] % (Auto) 8.2 % (2.6-8.5) Eos % (Auto) 0.7 % (0-4.4) Baso % (Auto) 0.2 % (0.2-1.2) Lymph # (Auto) 1.38 K/mm3 (0.9-3.2) [place] # (Auto) 0.7 H K/mm3 (0.1-0.6) Eos # (Auto) 0.1 K/mm3 (0-0.3) Baso # (Auto) 0.0 K/mm3 (0.0-0.1) Abs Immat Gran (auto) 0.02 K/mm3 (0.00-0.031) Absolute Neuts (auto) 5.9 K/mm3 (1.3-6.7) Absolute Nucleated RBC 0.000 K/mm3 (0.0-0.012) Nucleated RBC % 0.0 % (0.0-0.2) Sodium 139 mmol/L (137-145) Potassium 3.4 mmol/L (3.4-5.0) Chloride 110 H mmol/L (98-107) Carbon Dioxide 25 mmol/L (22-30) Anion Gap 4 mmol/L (4-12) BUN 8 mg/dL (7-17) Creatinine 0.60 L mg/dL (0.7-1.0) Estim Creat Clear Calc 78 ml/min Estimated GFR > 60 (59 - ) Glucose 90 mg/dL (65-110) Lactic Acid 1.3 mmol/L (0.7-2.0) Calcium 8.2 L mg/dL (8.4-10.2) Magnesium 1.9 mg/dL (1.6-2.3) Total Bilirubin 0.5 mg/dL (0.2-1.3) AST 16 U/L (14-36) ALT 13 U/L (6-35) Alkaline Phosphatase 89 U/L (38-126) Troponin I < 0.012 ng/mL (0.000-0.034) Total Protein 6.0 L g/dL (6.3-8.2) Albumin 3.6 g/dL (3.5-5.1) Triglycerides 88 mg/dL (<150) Cholesterol 167 mg/dL (0-200) LDL Cholesterol Direct 86 mg/dL HDL Direct 58 mg/dL Patient hx anesthesia problems: none Family hx anesthesia problems: none Results Review: All pre-operative results and documents have been reviewed as part of the pre-operative evaluation. [facility]LY [facility] Past Medical History Medical History (Updated 07/28/23 @ 10:15 by Ernestine Juarez APRN) Breast cancer Hyperlipidemia Surgical History Surgical History (Updated 07/27/23 @ 14:37 by Rupa Major APRN) History of mastectomy, total Social History Social History Smoking status: Never smoker Second hand tobacco smoke exposure: No Alcohol intake: never Substance use: never Substance use type: does not use Do You Feel Safe in your Home?: Yes Lack of Transportation
--- NOTE | 2023-07-28 12:25 | PC.NURSE ---
pt returned to room from GI lab, reviewed orders and plan of care, call to [place] about planned hyda scan, it will be tomorrow a.m, pt provided with menu and she will order something light
--- NOTE | 2023-07-28 14:50 | PC.NURSE ---
pt had previously received morphine, reviewed MD order for toradol
[2023-07-28] MEDS: KETOROLAC 30 MG/ML VIAL (*BKC) IV PUSH (14:52)
[2023-07-28 17:03] LABS: CRP < 0.5 mg/dL (<1.0)
[2023-07-29] VITALS: BP 150/74; PULSE 62; RESP 18; TEMP 35.8; O2SAT 100
[2023-07-29] MEDS: MORPHINE SULFATE (*CRX) 2 MG/ML INJ IV PUSH ×5 (01:50→22:20)
[2023-07-29] MEDS: ONDANSETRON INJ 4 MG/2 ML VIAL IV PUSH ×3 (01:51→17:45)
[2023-07-29 04:45] VITALS: BP 147/64; PULSE 73; RESP 18; TEMP 36; O2SAT 100
[2023-07-29 05:49] LABS: Basophils Percent Auto 0.3 % (0.2-1.2); Eosinophils Absolute Auto 0.2 K/mm3 (0-0.3); Eosinophils Percent Auto 3.1 % (0-4.4); Hematocrit 38.1 % (37.0-47.0); Hemoglobin 11.9 g/dL (12.0-15.0); Immature Granulocyte Absolute 0.02 K/mm3 (0.00-0.031); Immature Granulocyte Percent A 0.3 % (0-0.5); Lymphocytes Absolute Auto 1.67 K/mm3 (0.9-3.2); Lymphocytes Percent Auto 25.8 % (18.3-44.2); Mean Corpuscular HGB Conc 31.2 g/dl (32-36); Mean Corpuscular Hemoglobin 29.8 pg (26-34); Mean Corpuscular Volume 95.5 fl (80-100); Mean Platelet Volume 10.2 fl (7.4-10.4); Monocytes Absolute Auto 0.6 K/mm3 (0.1-0.6); Monocytes Percent Auto 9.1 % (2.6-8.5); Neutrophils Percent Auto 61.4 % (45.5-73.1); Platelet Count Result 227 k/mm3 (150-375); Red Blood Count 3.99 M/mm3 (4.2-5.4); Red Cell Distribution Width 12.4 % (11.5-14.5); White Blood Count 6.5 K/mm3 (4.5-10.0)
[2023-07-29 06:02] LABS: Alanine Aminotransferase 12 U/L (6-35); Albumin Level 3.7 g/dL (3.5-5.1); Alkaline Phosphatase 79 U/L (38-126); Anion Gap 5 mmol/L (4-12); Aspartate Amino Transferase 17 U/L (14-36); Bilirubin,Total 0.4 mg/dL (0.2-1.3); Blood Urea Nitrogen 8 mg/dL (7-17); Carbon Dioxide 24 mmol/L (22-30); Chloride 108 mmol/L (98-107); Estimated CRCL calculation 68 ml/min; Estimated Glomerular Filt Rate > 60; Glucose 87 mg/dL (65-110); Potassium 3.3 mmol/L (3.4-5.0); Sodium 137 mmol/L (137-145)
--- NOTE | 2023-07-29 07:44 | P.PNIM_ITS ---
Progress Note: A&P Assessment and Plan (1) Right upper quadrant abdominal pain: Code(s): R10.11 - Right upper quadrant pain Status: Acute Assessment and Plan: Unclear etiology. Complains of right upper quadrant abdominal pain that travels to her back with nausea and vomiting. * White blood cell count normal * Lactic acid was normal * Lipase normal * CT abdomen and pelvis non con was normal * Right upper quadrant ultrasound normal * CTA abdomen and pelvis ordered * Morphine p.r.n. and Bentyl for pain * Zofran and Compazine p.r.n. for pain * IV fluids at 125 mL an hour * Stopped antibiotics as patient does not have a white count and no evidence of infection on imaging * Low suspicion for a cardiac insult but given lack of clear etiology will check troponin and EKG * GI consulted and rec's appreciated. May need EGD? 07/27: * EGD today was normal. Biopsies were taken. * Continues to have moderate to severe RUQ pain traveling to her back * morphine prn * IVF continue * prn Zofran and Compazine for nausea 07/28: * HIDA scan today shows decreased gallbladder ejection fraction of 25%. * She has persistent nausea, vomiting, and abdominal pain * She received zofran and morphine again overnight * Surgery is consulted * White count remains normal (2) Compression fracture: Status: Acute Assessment and Plan: history of severe compression fracture L5 patient is advised to get a DEXA scan and consult pain clinic 07/27: * Added Toradol to see if this helps with her pain * CRP ordered and is normal * fractures are chronic per rads report * She has had a DEXA scan in the past which showed osteopenia but no osteoporosis. Plan Feeding: regular Analgesia: morphine Thromboembolic prophylaxis: Lovenox Ulcer prophylaxis: Protonix Lines: PIV Antibiotics: na Disposition: home when clinically better Subjective Date/time seen: 07/29/23 07:44 Interval history: Patient is a 63-year-old female presented to the emergency room complaining of right upper quadrant pain.? Patient was seen in the emergency room yesterday as well with a similar complaint was sent home but she came back because of worsening abdominal pain with nausea no vomiting no chest pain no shortness for breath no skin rash or? or indigestion.? Patient defines pain mostly in the right upper quadrant on deep palpation no previous history of gallstones or reza creatitis? in the past. 07/26: Patient is seen today resting in bed with her son and at bedside. She appears unwell. She states she is continuing to have this right lateral abdominal pain that travels to her back with associated nausea and dry heaving. She is receiving pain medications and nausea medications that are helping but her symptoms are not improving. CT of her abdomen from 07/25 with no acute process. Her right upper quadrant ultrasound was negative for acute cholecystitis for bile duct dilatation. Her lipase and lactic were both negative on admission. Will proceed with CT angiogram of her abdomen and pelvis to rule out mesenteric clot. Given unclear etiology of her pain and nausea, vomiting I will go ahead and check a troponin and EKG. I have also reached out to GI to ask them for a consult. Patient may need EGD to help with differential diagnosis. 07/27: Mrs. Rodriguez continues to have RUQ abdominal pain that radiates to her back and nausea. She tried not taking her IV morphine to make sure the pain was still occurring and she ended up having return of the RUQ/back pain. She appears tired and weak. She had her EGD which was normal. Biopsies w
--- NOTE | 2023-07-29 07:44 | PM.IMPN ---
Progress Note: A&P Assessment and Plan (1) Right upper quadrant abdominal pain: Code(s): R10.11 - Right upper quadrant pain Status: Acute Assessment and Plan: Unclear etiology. Complains of right upper quadrant abdominal pain that travels to her back with nausea and vomiting. White blood cell count normal Lactic acid was normal Lipase normal CT abdomen and pelvis non con was normal Right upper quadrant ultrasound normal CTA abdomen and pelvis ordered Morphine p.r.n. and Bentyl for pain Zofran and Compazine p.r.n. for pain IV fluids at 125 mL an hour Stopped antibiotics as patient does not have a white count and no evidence of infection on imaging Low suspicion for a cardiac insult but given lack of clear etiology will check troponin and EKG GI consulted and rec's appreciated. May need EGD? 07/27: EGD today was normal. Biopsies were taken. Continues to have moderate to severe RUQ pain traveling to her back morphine prn IVF continue prn Zofran and Compazine for nausea 07/28: HIDA scan today shows decreased gallbladder ejection fraction of 25%. She has persistent nausea, vomiting, and abdominal pain She received zofran and morphine again overnight Surgery is consulted White count remains normal (2) Compression fracture: Status: Acute Assessment and Plan: history of severe compression fracture L5 patient is advised to get a DEXA scan and consult pain clinic 07/27: Added Toradol to see if this helps with her pain CRP ordered and is normal fractures are chronic per rads report She has had a DEXA scan in the past which showed osteopenia but no osteoporosis. Plan Feeding: regular Analgesia: morphine Thromboembolic prophylaxis: Lovenox Ulcer prophylaxis: Protonix Lines: PIV Antibiotics: na Disposition: home when clinically better Subjective Date/time seen: 07/29/23 07:44 Interval history: Patient is a 63-year-old female presented to the emergency room complaining of right upper quadrant pain.? Patient was seen in the emergency room yesterday as well with a similar complaint was sent home but she came back because of worsening abdominal pain with nausea no vomiting no chest pain no shortness for breath no skin rash or? or indigestion.? Patient defines pain mostly in the right upper quadrant on deep palpation no previous history of gallstones or pancreatitis? in the past. 07/26: Patient is seen today resting in bed with her son and at bedside. She appears unwell. She states she is continuing to have this right lateral abdominal pain that travels to her back with associated nausea and dry heaving. She is receiving pain medications and nausea medications that are helping but her symptoms are not improving. CT of her abdomen from 07/25 with no acute process. Her right upper quadrant ultrasound was negative for acute cholecystitis for bile duct dilatation. Her lipase and lactic were both negative on admission. Will proceed with CT angiogram of her abdomen and pelvis to rule out mesenteric clot. Given unclear etiology of her pain and nausea, vomiting I will go ahead and check a troponin and EKG. I have also reached out to GI to ask them for a consult. Patient may need EGD to help with differential diagnosis. 07/27: Mrs. Rodriguez continues to have RUQ abdominal pain that radiates to her back and nausea. She tried not taking her IV morphine to make sure the pain was still occurring and she ended up having return of the RUQ/back pain. She appears tired and weak. She had her EGD which was normal. Biopsies were take. Dr Mabry did mention possible etiology of pain could be stemming from her chronic fractures to T12 and L5. The plan as of now is to proceed with a HIDA scan and we can also get MR imaging of her lumbar and thoracic spine. 07/28: HIDA scan completed this morning and does show delayed gallbladder emptying. Given the fact that she has persistent abdominal
[2023-07-29] MEDS: KETOROLAC 30 MG/ML VIAL (*BKC) IV PUSH (08:09)
--- NOTE | 2023-07-29 08:42 | WPDANESPN ---
Anes - Prog Note Post-Op Date/Time: 07/29/23 08:42 Cardiovascular status: normal Respiratory status: normal Airway patency: baseline Mental status: baseline Post-Op hydration status: normal Vital Signs: Last Vital Signs Temp 36.0 C L 07/29/23 04:45 Pulse 73 07/29/23 04:45 Resp 18 07/29/23 04:45 BP 147/64 H 07/29/23 04:45 Pulse Ox 100 07/29/23 04:45 O2 Del Method Room Air 07/28/23 20:00 Pain Score (VAS): 04/05 I/O: Intake & Output 07/28/23 07/29/23 07/29/23 23:59 07:59 15:59 Intake Total 1119.2 120 Output Total 1600 Balance -480.8 120 Laboratory Tests 07/29/23 05:34 07/29/23 05:34 07/28/23 07/29/23 04:52 05:34 WBC 6.5 RBC 3.99 L Hgb 11.9 L Hct 38.1 MCV 95.5 MCH 29.8 MCHC 31.2 L RDW 12.4 Plt Count 227 MPV 10.2 Immature Gran % (Auto) 0.3 Neut % (Auto) 61.4 Lymph % (Auto) 25.8 [place] % (Auto) 9.1 H Eos % (Auto) 3.1 Baso % (Auto) 0.3 Lymph # (Auto) 1.67 [place] # (Auto) 0.6 Eos # (Auto) 0.2 Baso # (Auto) 0.0 Abs Immat Gran (auto) 0.02 Absolute Neuts (auto) 4.0 Absolute Nucleated RBC 0.000 Nucleated RBC % 0.0 Sodium 137 Potassium 3.3 L Chloride 108 H Carbon Dioxide 24 Anion Gap 5 BUN 8 Creatinine 0.70 Estim Creat Clear Calc 68 Estimated GFR > 60 Glucose 87 Calcium 8.0 L Total Bilirubin 0.4 AST 17 ALT 12 Alkaline Phosphatase 79 C-Reactive Protein < 0.5 Total Protein 6.0 L Albumin 3.7 Microbiology 07/27/23 01:10 Clean Catch Midstream Urine Culture - Final Post-procedural complaints: none Patient Feedback: Patient satisfied with anesthetic care.
[2023-07-29 10:00] VITALS: BP 146/66; PULSE 75; RESP 21; TEMP 36.9; O2SAT 100
[2023-07-29] MEDS: ENOXAPARIN 40 MG/0.4 ML SYRINGE SUB-Q (10:07)
[2023-07-29] MEDS: PANTOPRAZOLE SODIUM IV 40 MG VIAL IV PUSH (10:07)
[2023-07-29] MEDS: POTASSIUM CHLORIDE INJ 40 MEQ in SODIUM CHLORIDE 0.9% IV 500 ML 130 MEQ IVPB (10:08)
[2023-07-29] MEDS: PROCHLORPERAZINE EDISYLATE 10 MG/2 ML VIAL IV PUSH ×2 (12:02→22:18)
--- NOTE | 2023-07-29 15:03 | PM.CNGS ---
Assessment and Plan Assessment and plan (1) Chronic cholecystitis: Code(s): K81.1 - Chronic cholecystitis Status: Acute Assessment and Plan: symptoms consistent with chronic cholecystitis, biliary colic with reproduction of symptoms during HIDA, will proceed with urgent cholecystectomy History of Present Illness Consult details Consult date: 07/29/23 Reason for consult: abdominal pain Requesting physician: Rupa Major APRN Narrative: The patient is a 63-year-old female that presented to the hospital complaining of right upper quadrant abdominal pain, nausea. The patient reports that the symptoms have been ongoing for the last week. Patient reports that the pain is worse after or attempting to eat. Workup, including imaging, been largely unremarkable. The patient did get a HIDA scan today that reproduced her symptoms and showed a low ejection fraction. Of note, the patient reports a family history of gallbladder disease in her family. The patient reports that she is still largely unable to eat secondary to pain and nausea. The patient also complains of bloating. Review of Systems Review of Systems: All systems reviewed & are unremarkable except as noted in HPI and below PMFSH Past Medical History Medical History Breast cancer Hyperlipidemia Surgical History Surgical History History of mastectomy, total Social History Social History Smoking status: Never smoker Second hand tobacco smoke exposure: No Alcohol intake: never Substance use: never Substance use type: does not use Do You Feel Safe in your Home?: Yes Lack of Transportation: No Lack of Food: Never True Current Housing: I Have Housing Concerned About Future Housing: No Difficulty Paying Gas/Electric Bills: No Difficulty Paying for Meds: No Currently Unemployed: No Education: High School Diploma/GED Difficulty w/ Childcare or Family Care: No Spiritual care concerns: No Comments FH - biliary dz Meds Home Medications and Allergies Home Medications Medication Instructions Recorded Confirmed Type dicyclomine 20 mg tablet 20 mg PO QID PRN abdominal 07/26/23 07/27/23 Rx discomfort #20 tabs ondansetron 4 mg disintegrating 4 mg PO Q8H PRN nausea and 07/26/23 07/27/23 Rx tablet vomiting #10 tabs meloxicam 7.5 mg tablet 7.5 mg PO DAILY 07/27/23 07/27/23 History rosuvastatin 5 mg tablet (Crestor) 5 mg PO DAILY 07/27/23 07/27/23 History Allergies Allergy/AdvReac Type Severity Reaction Status Date / Time Sulfa (Sulfonamide AdvReac Intermediate VOMITING Verified 07/28/23 13:50 Antibiotics) meperidine AdvReac Unknown Nausea and Verified 07/28/23 13:50 Vomiting Vital Signs Vital Signs - 24 hr 07/28/23 16:00 07/28/23 20:22 07/28/23 20:00 Temperature 37.1 C 35.7 C L Pulse Rate 78 76 76 Respiratory Rate 16 18 18 Blood Pressure 145/61 H 152/69 H Pulse Oximetry 98 99 99 Oxygen Delivery Room Air 07/29/23 00:00 07/29/23 04:45 07/29/23 10:00 Temperature 35.8 C L 36.0 C L 36.9 C Pulse Rate 62 73 75 Respiratory Rate 18 18 21 H Blood Pressure 150/74 H 147/64 H 146/66 H Pulse Oximetry 100 100 100 Oxygen Delivery 07/29/23 08:00 Temperature Pulse Rate Respiratory Rate Blood Pressure Pulse Oximetry Oxygen Delivery Room Air Exam Const: General: cooperative, no acute distress and uncomfortable HENMT: Head: normal to inspection, normocephalic and atraumatic Eyes: General: appearance normal, both eyes and all related structures Neck: Neck: normal visual inspection, full ROM and no lymphadenopathy Resp: Auscultation: clear to auscultation bilaterally Cardio: Rate: regular rate Rhythm: regular rhythm GI: Inspection: normal to inspection and distended GI Palp: Yes abdominal tenderness, Yes Soft
--- NOTE | 2023-07-29 15:31 | WPDGIPROGNO ---
Progress Note: A&P Assessment and Plan (1) Right flank pain: Code(s): R10.9 - Unspecified abdominal pain Status: Acute Assessment and Plan: ? GB related, noted hida scan report surgery talked to patient and probably lap minesh (2) Nausea and vomiting: Qualifiers: Vomiting type: unspecified Qualified Code(s): R11.2 - Nausea with vomiting, unspecified Code(s): R11.2 - Nausea with vomiting, unspecified Status: Acute Assessment and Plan: egd no major findings (3) Right upper quadrant abdominal pain: Code(s): R10.11 - Right upper quadrant pain Status: Acute (4) HTN (hypertension): Code(s): I10 - Essential (primary) hypertension Status: Acute Subjective Date/time seen: 07/29/23 15:31 Interval history: egd no major findings, still with similar pain in ruq with radiation to her back and nausea, HIDA scan showed low EF Review of Systems Review of Systems: All systems reviewed & are unremarkable except as noted in HPI and below Exam Const: General: cooperative, no acute distress and uncomfortable HENMT: Head: normal to inspection, normocephalic and atraumatic Eyes: General: appearance normal, both eyes and all related structures Neck: Neck: normal visual inspection and full ROM Resp: Auscultation: clear to auscultation bilaterally Cardio: Rate: regular rate Rhythm: regular rhythm GI: Inspection: normal to inspection and distended GI Palp: Yes abdominal tenderness, Yes Soft to palpation, Yes Tenderness to palpation present (GI), No Guarding due to palpation present (GI) and No Rigid due to palpation Skin: General skin exam: normal color Neuro: Speech: normal speech Motor exam (neuro): 5/5 motor strength present throughout Extrem: General: normal to inspection Psych: Affect: normal affect Objective Data Vital Signs Vital Signs: Vital Signs - 24 hr 07/28/23 16:00 07/28/23 20:22 07/28/23 20:00 Temperature 98.7 F 96.3 F L Pulse Rate 78 76 76 Respiratory Rate 16 18 18 Blood Pressure 145/61 H 152/69 H Pulse Oximetry 98 99 99 Oxygen Delivery Room Air 07/29/23 00:00 07/29/23 04:45 07/29/23 10:00 Temperature 96.5 F L 96.8 F L 98.5 F Pulse Rate 62 73 75 Respiratory Rate 18 18 21 H Blood Pressure 150/74 H 147/64 H 146/66 H Pulse Oximetry 100 100 100 Oxygen Delivery 07/29/23 08:00 Temperature Pulse Rate Respiratory Rate Blood Pressure Pulse Oximetry Oxygen Delivery Room Air Intake/Output Intake/Output: Intake & Output 07/26/23 07/27/23 07/28/23 07/29/23 23:59 23:59 23:59 23:59 Intake Total 3112.5 3609.2 120 Output Total 850 3900 Balance 2262.5 -290.8 120 Meds/Results Medications: Active Medications Generic Name Dose Route Start Last Admin Trade Name Freq PRN Reason Stop Dose Admin Acetaminophen 650 mg 07/27/23 00:49 07/28/23 04:47 Acetaminophen 325 Mg Tablet PO 650 mg Q4H PRN Administration Mild Pain (1-3) or Fever Dicyclomine HCl 20 mg 07/27/23 04:57 07/28/23 04:47 Dicyclomine Hcl 10 Mg Capsule PO 20 mg QID PRN Administration abdominal discomfort Enoxaparin Sodium 40 mg 07/27/23 09:00 07/29/23 10:07 Enoxaparin 40 Mg/0.4 Ml Syringe SUB-Q 40 mg DAILY RACHEAL Administration Sodium Chloride 1,000 mls @ 125 mls/hr 07/27/23 00:35 07/28/23 20:40 Normal Saline Iv IV CONT 125 mls/hr .Q8H RACHEAL Administration Morphine Sulfate 2 mg 07/27/23 00:35 07/29/23 12:02 Morphine Sulfate (*Crx) 2 Mg/Ml Inj IV PUSH 2 mg Q2H PRN Administration Pain Rated 7-10 Ondansetron HCl 4 mg 07/27/23 00:35 07/29/23 10:06 Ondansetron Inj 4 Mg/2 Ml Vial IV PUSH 4 mg Q4H PRN Administration Nausea Pantoprazole Sodium 40 mg 07/27/23 14:25 07/29/23 10:07 Pantoprazole Sodium Iv 40 Mg Vial IV PUSH 40 mg QAM RACHEAL Administration Prochlorperazine Edisylate 10 mg 07/27/23 13:40 07/29/23 12:02 Prochlorperazine Edisylate 10
[2023-07-29 16:00] VITALS: BP 142/70; PULSE 75; RESP 18; TEMP 36.7; O2SAT 99
[2023-07-29] MEDS: SODIUM CHLORIDE 0.9% IV 1,000 ML 125 ML IV CONT (17:45)
[2023-07-29 20:08] VITALS: BP 151/70; PULSE 72; RESP 20; TEMP 36.5; O2SAT 100
[2023-07-30] VITALS (11 sets, daily range): BP systolic 144–169; BP diastolic 56–82; PULSE 73–88; RESP 11–20; TEMP 36.2–37.2; O2SAT 98–100
[2023-07-30] MEDS: SODIUM CHLORIDE 0.9% IV 1,000 ML 125 ML IV CONT ×2 (01:40→10:00)
[2023-07-30] MEDS: MORPHINE SULFATE (*CRX) 2 MG/ML INJ IV PUSH ×2 (04:25→07:49)
[2023-07-30] MEDS: ONDANSETRON INJ 4 MG/2 ML VIAL IV PUSH ×2 (04:25→15:53)
[2023-07-30 05:13] LABS: Basophils Percent Auto 0.3 % (0.2-1.2); Eosinophils Absolute Auto 0.2 K/mm3 (0-0.3); Eosinophils Percent Auto 3.4 % (0-4.4); Hematocrit 38.3 % (37.0-47.0); Hemoglobin 12.6 g/dL (12.0-15.0); Immature Granulocyte Absolute 0.02 K/mm3 (0.00-0.031); Immature Granulocyte Percent A 0.3 % (0-0.5); Lymphocytes Percent Auto 16.5 % (18.3-44.2); Mean Corpuscular HGB Conc 32.9 g/dl (32-36); Mean Corpuscular Volume 91.2 fl (80-100); Mean Platelet Volume 10.1 fl (7.4-10.4); Monocytes Absolute Auto 0.6 K/mm3 (0.1-0.6); Monocytes Percent Auto 9.6 % (2.6-8.5); Neutrophils Absolute Auto 4.7 K/mm3 (1.3-6.7); Neutrophils Percent Auto 69.9 % (45.5-73.1); Platelet Count Result 226 k/mm3 (150-375); Red Cell Distribution Width 12.4 % (11.5-14.5); White Blood Count 6.7 K/mm3 (4.5-10.0)
[2023-07-30 05:22] LABS: Alanine Aminotransferase 14 U/L (6-35); Albumin Level 3.7 g/dL (3.5-5.1); Alkaline Phosphatase 83 U/L (38-126); Anion Gap 6 mmol/L (4-12); Aspartate Amino Transferase 20 U/L (14-36); Bilirubin,Total 0.5 mg/dL (0.2-1.3); Blood Urea Nitrogen 8 mg/dL (7-17); Calcium 8.1 mg/dL (8.4-10.2); Carbon Dioxide 24 mmol/L (22-30); Chloride 107 mmol/L (98-107); Estimated CRCL calculation 78 ml/min; Estimated Glomerular Filt Rate > 60; Glucose 88 mg/dL (65-110); Potassium 3.3 mmol/L (3.4-5.0); Sodium 137 mmol/L (137-145)
[2023-07-30] MEDS: PROCHLORPERAZINE EDISYLATE 10 MG/2 ML VIAL IV PUSH (07:49)
[2023-07-30] MEDS: ROSUVASTATIN 5 MG TABLET PO (09:09)
[2023-07-30] MEDS: PANTOPRAZOLE SODIUM IV 40 MG VIAL IV PUSH (09:09)
[2023-07-30] MEDS: POTASSIUM CHLORIDE 20 MEQ PACKET (FOR LIQUID) 40 MEQ PO (09:23)
--- NOTE | 2023-07-30 10:54 | PM.IMPN ---
Progress Note: A&P Assessment and Plan (1) Right upper quadrant abdominal pain: Code(s): R10.11 - Right upper quadrant pain Status: Acute Assessment and Plan: Patient presents with right upper quadrant abdominal pain that travels to her back with nausea and vomiting. WBC, lipase and Lactic acid were normal CT abdomen and pelvis non con was normal Right upper quadrant ultrasound normal CTA abdomen and pelvis showing no significant arterial occlusive disease EGD was normal. HIDA with EF 25% and with that reproduces her symptoms. GenSurg consulted with plans for cholecystectomy. (2) Compression fracture: Status: Acute Assessment and Plan: Patient with a history of compression fracture. CT showing chronic moderate T12 and moderate-severe L5 compression fracture. Patient was advised to get a DEXA scan and consult pain clinic Plan Hypokalemia - probably related to IV fluids. Will replace Code status - full DVT prophylaxis - Lovenox Subjective Date/time seen: 07/30/23 10:54 Interval history: 63yo female with HLD here for right upper quadrant abdominal pain.? Assuming care. Chart reviewed. Still with persistent abd pain. Pain was much worse associated with nausea and vomiting after the HIDA scan yesterday. No n/v today. No CP or SOB. No CP or SOB at home prior to admission. She does have GA but is chronic and stable. Exam Narrative: AF 98.2 164/71 79 20 99% ra Gen - NARD Chest - CTA bilaterally, nml RR CV - RRR S1/S2 Abd - Soft, ND, Positive BS, no significant tenderness. Ext - No pedal edema Neuro - Alert and oriented. Nonfocal exam. Psych - Nml mood and affect Skin - Warm and dry Objective Data Vital Signs Vital Signs: Vital Signs - 24 hr 07/29/23 16:00 07/29/23 20:08 07/29/23 20:00 Temperature 98.0 F 97.7 F Pulse Rate 75 72 Respiratory Rate 18 20 Blood Pressure 142/70 H 151/70 H Pulse Oximetry 99 100 Oxygen Delivery Room Air 07/30/23 04:18 Temperature 98.2 F Pulse Rate 79 Respiratory Rate 20 Blood Pressure 164/71 H Pulse Oximetry 99 Oxygen Delivery Intake/Output Intake/Output: Intake & Output 07/27/23 07/28/23 07/29/23 07/30/23 23:59 23:59 23:59 23:59 Intake Total 3112.5 3609.2 2150 1109.6 Output Total 850 3900 1950 900 Balance 2262.5 -290.8 200 209.6 Meds/Results Medications: Active Medications Generic Name Dose Route Start Last Admin Trade Name Freq PRN Reason Stop Dose Admin Acetaminophen 650 mg 07/27/23 00:49 07/28/23 04:47 Acetaminophen 325 Mg Tablet PO 650 mg Q4H PRN Administration Mild Pain (1-3) or Fever Dicyclomine HCl 20 mg 07/27/23 04:57 07/28/23 04:47 Dicyclomine Hcl 10 Mg Capsule PO 20 mg QID PRN Administration abdominal discomfort Enoxaparin Sodium 40 mg 07/27/23 09:00 07/30/23 09:24 Enoxaparin 40 Mg/0.4 Ml Syringe SUB-Q Not Given DAILY RACHEAL Sodium Chloride 1,000 mls @ 125 mls/hr 07/27/23 00:35 07/30/23 01:40 Normal Saline Iv IV CONT 125 mls/hr .Q8H RACHEAL Administration Morphine Sulfate 2 mg 07/27/23 00:35 07/30/23 07:49 Morphine Sulfate (*Crx) 2 Mg/Ml Inj IV PUSH 2 mg Q2H PRN Administration Pain Rated 7-10 Ondansetron HCl 4 mg 07/27/23 00:35 07/30/23 04:25 Ondansetron Inj 4 Mg/2 Ml Vial IV PUSH 4 mg Q4H PRN Administration Nausea Pantoprazole Sodium 40 mg 07/27/23 14:25 07/30/23 09:09 Pantoprazole Sodium Iv 40 Mg Vial IV PUSH 40 mg QAM RACHEAL Administration Prochlorperazine Edisylate 10 mg 07/27/23 13:40 07/30/23 07:49 Prochlorperazine Edisylate 10 Mg/2 Ml Vial IV PUSH 10 mg Q6H PRN Administration Nausea And Vomiting Rosuvastatin Calcium 5 mg 07/27/23 09:00 07/30/23 09:09 Rosuvastatin 5 Mg Tablet PO 5 mg DAILY RACHEAL Administration Radiology Results: ITS Impressions Abdomen Ultrasound 07/27/23 07:42 IMPRESSION: 1: Normal limited abdominal ultrasound.
--- NOTE | 2023-07-30 11:22 | WPDHPUPDATE1 ---
History and Physical Update Update Date/Time: 07/30/23 11:22 History and Physical has been reviewed, including an updated exam of the patient. There are NO changes in the patient's condition. Risks, benefits, and alternatives have been discussed and questions answered. Patient agrees to proceed with procedure.
[2023-07-30] MEDS: LACTATED RINGERS 1,000 ML 30 ML IV CONT ×2 (12:16→13:59)
[2023-07-30] MEDS: fentaNYL CITRATE INJ (*CRX) 100 MCG/2 ML VIAL 25 MCG IV PUSH ×2 (12:20→12:41)
--- NOTE | 2023-07-30 12:26 | WPDANESEPPF ---
Anes - Initial Pre Proc Eval Procedure: Operation Date: 07/28/23 17:00 Proposed Procedures p Esophagogastroduodenoscopy - Tanner Mckenzie MD Operation Date: 07/30/23 13:00 Proposed Procedures p Laparoscopic Cholecystectomy - Apurva Rick MD Date/Time: 07/30/23 12:26 Surgeon: Rupa Major APRN Pre Op Diagnosis: right upper quadrant abominal pain Patient Data Age: 63 Gender: F Height: 1.6 m Weight: 70.8 kg Last Vital Signs Temp 36.8 C 07/30/23 04:18 Pulse 79 07/30/23 04:18 Resp 20 07/30/23 04:18 BP 164/71 H 07/30/23 04:18 Pulse Ox 99 07/30/23 04:18 O2 Del Method Room Air 07/30/23 08:00 Allergies Allergy/AdvReac Type Severity Reaction Status Date / Time Sulfa (Sulfonamide AdvReac Intermediate VOMITING Verified 07/28/23 13:50 Antibiotics) meperidine AdvReac Unknown Nausea and Verified 07/28/23 13:50 Vomiting Home Medications Medication Instructions Recorded Confirmed Type dicyclomine 20 mg tablet 20 mg PO QID PRN abdominal 07/26/23 07/27/23 Rx discomfort #20 tabs ondansetron 4 mg disintegrating 4 mg PO Q8H PRN nausea and 07/26/23 07/27/23 Rx tablet vomiting #10 tabs meloxicam 7.5 mg tablet 7.5 mg PO DAILY 07/27/23 07/27/23 History rosuvastatin 5 mg tablet (Crestor) 5 mg PO DAILY 07/27/23 07/27/23 History Laboratory Tests 07/30/23 05:05 WBC 6.7 K/mm3 (4.5-10.0) RBC 4.20 M/mm3 (4.2-5.4) Hgb 12.6 g/dL (12.0-15.0) Hct 38.3 % (37.0-47.0) MCV 91.2 fl (80-100) MCH 30.0 pg (26-34) MCHC 32.9 g/dl (32-36) RDW 12.4 % (11.5-14.5) Plt Count 226 k/mm3 (150-375) MPV 10.1 fl (7.4-10.4) Immature Gran % (Auto) 0.3 % (0-0.5) Neut % (Auto) 69.9 % (45.5-73.1) Lymph % (Auto) 16.5 L % (18.3-44.2) Hamlin % (Auto) 9.6 H % (2.6-8.5) Eos % (Auto) 3.4 % (0-4.4) Baso % (Auto) 0.3 % (0.2-1.2) Lymph # (Auto) 1.10 K/mm3 (0.9-3.2) Hamlin # (Auto) 0.6 K/mm3 (0.1-0.6) Eos # (Auto) 0.2 K/mm3 (0-0.3) Baso # (Auto) 0.0 K/mm3 (0.0-0.1) Abs Immat Gran (auto) 0.02 K/mm3 (0.00-0.031) Absolute Neuts (auto) 4.7 K/mm3 (1.3-6.7) Absolute Nucleated RBC 0.000 K/mm3 (0.0-0.012) Nucleated RBC % 0.0 % (0.0-0.2) Sodium 137 mmol/L (137-145) Potassium 3.3 L mmol/L (3.4-5.0) Chloride 107 mmol/L (98-107) Carbon Dioxide 24 mmol/L (22-30) Anion Gap 6 mmol/L (4-12) BUN 8 mg/dL (7-17) Creatinine 0.60 L mg/dL (0.7-1.0) Estim Creat Clear Calc 78 ml/min Estimated GFR > 60 (59 - ) Glucose 88 mg/dL (65-110) Calcium 8.1 L mg/dL (8.4-10.2) Total Bilirubin 0.5 mg/dL (0.2-1.3) AST 20 U/L (14-36) ALT 14 U/L (6-35) Alkaline Phosphatase 83 U/L (38-126) Total Protein 6.0 L g/dL (6.3-8.2) Albumin 3.7 g/dL (3.5-5.1) Patient hx anesthesia problems: none Family hx anesthesia problems: none Results Review: All pre-operative results and documents have been reviewed as part of the pre-operative evaluation. [facility] Past Medical History Medical History Breast cancer Hyperlipidemia Surgical History Surgical History History of mastectomy, total Social History Social History Smoking status: Never smoker Second hand tobacco smoke exposure: No Alcohol intake: never Substance use: never Substance use type: does not use Do You Feel Safe in your Home?: Yes Lack of Transportation: No Lack of Food: Never True Current Housing: I Have Housing Concerned About Future Housing: No Difficulty Paying Gas/Electric Bills: No Difficulty Paying for Meds: No Currently Unemployed: No Education: High School Diploma/GED Difficulty w/ Childcare or Family Care: No Spiritual care concerns: No
[2023-07-30] MEDS: ceFAZolin 2 GM/D5W 50 ML 2 GM/50 ML BAG IVPB (13:10)
[2023-07-30] MEDS: BUPIVACAINE/EPINEPHRINE 0.5% 50 ML VIAL 30 ML INFILTRATE (13:27)
--- NOTE | 2023-07-30 13:52 | W.PM.PROC2 ---
Procedure Note - Detailed Date of Procedure 07/30/23 Pre-op Diagnosis chronic cholecystitis Post-op Diagnosis Same Procedure Performed Laparoscopic cholecystectomy Surgeon Apurva Rick MD Anesthesia General Indications 63-year-old female presented to the hospital complaining of right upper quadrant abdominal pain associated with nausea/vomiting, bloating. Workup including imaging significant for chronic cholecystitis. Findings moderate cholecystitis Description of Procedure The patient was taken to the operating room placed in the supine position. After adequate induction of general anesthesia, the patient was prepped and draped in normal sterile fashion. A time-out was then performed to verify the patient's identity as well as the procedure being performed. I then made a 5 mm incision in the infraumbilical region. Through this a 5 mm optiview trocar was placed through this incision under direct visualization. I then placed the laparoscope through this trocar site and under direct visualization placed a further 12 mm subxiphoid port as well as 2 additional 5 mm ports in the right upper abdomen. The gallbladder was then identified and was noted to be moderately inflamed and distended. I was able to place a grasper at the dome of the gallbladder and this was retracted anterior and cephalad up over the liver. A 2nd retractor was then placed at the infundibulum and retracted laterally, this allowed visualization of the triangle of Calot. I then was able to visualize the cystic duct in its entirety from its proximal insertion into the gallbladder, to its distal junction with the common hepatic/common bile duct junction. At this point, I carefully skeletonized the proximal cystic duct with the [place] dissector. I then clipped and transected the proximal cystic duct. Next I visualized the cystic artery. Again the artery was skeletonized, clipped, and transected. I then used the Bovie cautery to take down the peritoneal attachments of the gallbladder off the liver bed. Once the gallbladder specimen was completely detached, an endo-pouch was placed through the 12 mm port site. I then placed the gallbladder specimen into the Endo pouch and removed the endo-pouch from the 12 mm port site. The specimen will now be sent to pathology for further review. I then copiously irrigated the right upper quadrant. No other pathology was noted in the right upper quadrant. I then moved the laparoscope to the subxiphoid port. No iatrogenic injury or other pathology was noted in the lower abdomen. I then closed the 12 mm trocar site under direct visualization using the Alex cone and 0 Vicryl suture. At this point, the abdomen was desufflated and all ports removed. All port sites were then closed with 4.O Monocryl subcuticular sutures. Dermabond was placed on each incision. The patient tolerated the procedure well, was extubated in the operating room postoperative and will be transferred to the recovery room in stable condition Estimated Blood Loss 5 Drains No Packing No Pathology Yes Complications No immediate complications Condition Stable Disposition PACU [facility] Billing Surgery - Charge Forward: Surgery Billing
--- NOTE | 2023-07-30 16:42 | WPDGIPROGNO ---
Progress Note: A&P Assessment and Plan (1) Chronic cholecystitis: Code(s): K81.1 - Chronic cholecystitis Status: Acute Assessment and Plan: s/p brennan edge she already can tell the difference after surgery with pain almost gone now egd unremarkable disposition per surgery will follow-up as needed (2) Nausea and vomiting: Qualifiers: Vomiting type: unspecified Qualified Code(s): R11.2 - Nausea with vomiting, unspecified Code(s): R11.2 - Nausea with vomiting, unspecified Status: Acute Assessment and Plan: improved (3) Right upper quadrant abdominal pain: Code(s): R10.11 - Right upper quadrant pain Status: Acute Subjective Date/time seen: 07/30/23 16:42 Interval history: s/p brennan edge, she is already feeling much better and pain is gone, noted to have mod cholecystitis Review of Systems Review of Systems: All systems reviewed & are unremarkable except as noted in HPI and below Exam Const: General: comfortable and no acute distress HENMT: Face/Nose/Sinus: Normal nares present Eyes: General: appearance normal, both eyes and all related structures Neck: Neck: supple Resp: Auscultation: clear to auscultation bilaterally Cardio: Rate: regular rate Rhythm: regular rhythm GI: GI Palp: Yes Soft to palpation, Yes Tenderness to palpation present (GI) (less tender- expected from surgery, no rebound) and No Guarding due to palpation present (GI) Skin: General skin exam: normal color Neuro: Speech: normal speech Motor exam (neuro): 5/5 motor strength present throughout Extrem: General: normal to inspection Psych: Mental Status: mental status grossly normal Objective Data Vital Signs Vital Signs: Vital Signs - 24 hr 07/29/23 20:08 07/29/23 20:00 07/30/23 04:18 Temperature 97.7 F 98.2 F Pulse Rate 72 79 Respiratory Rate 20 20 Blood Pressure 151/70 H 164/71 H Pulse Oximetry 100 99 Oxygen Delivery Room Air Oxygen Flow Rate 07/30/23 08:00 07/30/23 12:16 07/30/23 13:58 Temperature 99.0 F 97.6 F Pulse Rate 73 83 Respiratory Rate 16 14 Blood Pressure 153/70 H 144/64 H Pulse Oximetry 100 100 Oxygen Delivery Room Air Room Air Simple Face Mask Oxygen Flow Rate 10 07/30/23 14:13 07/30/23 14:28 07/30/23 14:43 Temperature Pulse Rate 80 85 77 Respiratory Rate 12 14 11 L Blood Pressure 158/66 H 167/64 H 161/68 H Pulse Oximetry 100 98 98 Oxygen Delivery Simple Face Mask Room Air Room Air Oxygen Flow Rate 10 07/30/23 14:48 07/30/23 15:15 07/30/23 15:30 Temperature 97.2 F L 97.2 F L Pulse Rate 75 83 88 Respiratory Rate 11 L 12 14 Blood Pressure 169/70 H 156/56 H 157/82 H Pulse Oximetry 98 99 99 Oxygen Delivery Room Air Oxygen Flow Rate 07/30/23 16:30 Temperature 98.2 F Pulse Rate 83 Respiratory Rate 16 Blood Pressure 156/62 H Pulse Oximetry 99 Oxygen Delivery Oxygen Flow Rate Intake/Output Intake/Output: Intake & Output 07/27/23 07/28/23 07/29/23 07/30/23 23:59 23:59 23:59 23:59 Intake Total 3112.5 3609.2 2150 2459.6 Output Total 850 3900 1950 900 Balance 2262.5 -290.8 200 1559.6 Meds/Results Medications: Active Medications Generic Name Dose Route Start Last Admin Trade Name Freq PRN Reason Stop Dose Admin Acetaminophen 650 mg 07/27/23 00:49 07/28/23 04:47 Acetaminophen 325 Mg Tablet PO 650 mg Q4H PRN Administration Mild Pain (1-3) or Fever Hydrocodone Bitart/Acetaminophen 1 tab 07/30/23 14:50 Hydrocodone/Acetaminophen (*Crx) 5-325 Mg Tablet PO Q4H PRN Pain Rated 4-6 Dicyclomine HCl 20 mg 07/27/23 04:57 07/28/23 04:47 Dicyclomine Hcl 10 Mg Capsule PO 20 mg QID PRN Administration abdominal discomfort Enoxaparin Sodium 40 mg 07/27/23 09:00 07/30/23 09:24 Enoxaparin 40 Mg/0.4 Ml Syringe SUB-Q Not Given DAILY RACHEAL Sodium Chloride 1,000 mls @ 125 mls/hr 07/27/23 00:35 07/30/23 10:00 Normal Saline Iv IV CON
[2023-07-30] MEDS: ACETAMINOPHEN 325 MG TABLET 650 MG PO (20:26)
[2023-07-31] MEDS: SODIUM CHLORIDE 0.9% IV 1,000 ML 125 ML IV CONT (01:14)
[2023-07-31] MEDS: HYDROcodone/acetaminophen (*CRX) 5-325 MG TABLET 1 TAB PO ×2 (02:54→06:35)
[2023-07-31] MEDS: ONDANSETRON INJ 4 MG/2 ML VIAL IV PUSH ×2 (02:57→06:35)
[2023-07-31 05:02] LABS: Basophils Percent Auto 0.1 % (0.2-1.2); Eosinophils Percent Auto 0.1 % (0-4.4); Hematocrit 36.6 % (37.0-47.0); Hemoglobin 12.1 g/dL (12.0-15.0); Immature Granulocyte Absolute 0.05 K/mm3 (0.00-0.031); Immature Granulocyte Percent A 0.4 % (0-0.5); Lymphocytes Absolute Auto 1.07 K/mm3 (0.9-3.2); Lymphocytes Percent Auto 9.5 % (18.3-44.2); Mean Corpuscular HGB Conc 33.1 g/dl (32-36); Mean Corpuscular Hemoglobin 29.7 pg (26-34); Mean Corpuscular Volume 89.9 fl (80-100); Mean Platelet Volume 10.1 fl (7.4-10.4); Monocytes Absolute Auto 1.1 K/mm3 (0.1-0.6); Monocytes Percent Auto 9.4 % (2.6-8.5); Neutrophils Percent Auto 80.5 % (45.5-73.1); Platelet Count Result 233 k/mm3 (150-375); Red Blood Count 4.07 M/mm3 (4.2-5.4); Red Cell Distribution Width 12.2 % (11.5-14.5); White Blood Count 11.2 K/mm3 (4.5-10.0)
[2023-07-31 05:12] LABS: Alanine Aminotransferase 31 U/L (6-35); Albumin Level 3.7 g/dL (3.5-5.1); Alkaline Phosphatase 85 U/L (38-126); Anion Gap 5 mmol/L (4-12); Aspartate Amino Transferase 39 U/L (14-36); Bilirubin,Total 0.6 mg/dL (0.2-1.3); Blood Urea Nitrogen 7 mg/dL (7-17); Calcium 8.2 mg/dL (8.4-10.2); Carbon Dioxide 25 mmol/L (22-30); Chloride 105 mmol/L (98-107); Estimated CRCL calculation 78 ml/min; Estimated Glomerular Filt Rate > 60; Glucose 103 mg/dL (65-110); Potassium 3.5 mmol/L (3.4-5.0); Sodium 135 mmol/L (137-145)
[2023-07-31 05:30] VITALS: BP 155/63; PULSE 71; RESP 18; TEMP 36.8; O2SAT 100
[2023-07-31 08:09] VITALS: O2SAT 99
[2023-07-31] MEDS: ENOXAPARIN 40 MG/0.4 ML SYRINGE SUB-Q (08:41)
[2023-07-31] MEDS: PANTOPRAZOLE SODIUM IV 40 MG VIAL IV PUSH (08:42)
[2023-07-31] MEDS: ROSUVASTATIN 5 MG TABLET PO (08:42)
--- NOTE | 2023-07-31 09:19 | PM.PNGS ---
Progress Note: A&P Assessment and Plan (1) Chronic cholecystitis: Code(s): K81.1 - Chronic cholecystitis Status: Acute Assessment and Plan: much improved, home c po analgesia, f/u 2 wks Subjective Subjective Date/Time Seen: 07/31/23 09:19 Interval history: feels much improved, some incisional soreness Review of Systems Review of Systems: All systems reviewed & are unremarkable except as noted in HPI and below Exam Const: General: cooperative, comfortable and no acute distress GI: Inspection: normal to inspection and incision GI Palp: Yes abdominal tenderness Objective Data Vital Signs Vital Signs: Vital Signs - 24 hr 07/30/23 12:16 07/30/23 13:58 07/30/23 14:13 Temperature 37.2 C 36.4 C Pulse Rate 73 83 80 Respiratory Rate 16 14 12 Blood Pressure 153/70 H 144/64 H 158/66 H Pulse Oximetry 100 100 100 Oxygen Delivery Room Air Simple Face Mask Simple Face Mask Oxygen Flow Rate 10 10 Fraction of Inspired Oxygen 07/30/23 14:28 07/30/23 14:43 07/30/23 14:48 Temperature Pulse Rate 85 77 75 Respiratory Rate 14 11 L 11 L Blood Pressure 167/64 H 161/68 H 169/70 H Pulse Oximetry 98 98 98 Oxygen Delivery Room Air Room Air Room Air Oxygen Flow Rate Fraction of Inspired Oxygen 07/30/23 15:15 07/30/23 15:30 07/30/23 16:30 Temperature 36.2 C L 36.2 C L 36.8 C Pulse Rate 83 88 83 Respiratory Rate 12 14 16 Blood Pressure 156/56 H 157/82 H 156/62 H Pulse Oximetry 99 99 99 Oxygen Delivery Oxygen Flow Rate Fraction of Inspired Oxygen 07/30/23 20:00 07/30/23 23:19 07/31/23 05:30 Temperature 36.8 C 36.8 C Pulse Rate 77 71 Respiratory Rate 18 18 Blood Pressure 154/72 H 155/63 H Pulse Oximetry 100 100 Oxygen Delivery Room Air Oxygen Flow Rate Fraction of Inspired Oxygen 07/31/23 08:09 Temperature Pulse Rate Respiratory Rate Blood Pressure Pulse Oximetry 99 Oxygen Delivery Room Air Oxygen Flow Rate Fraction of Inspired Oxygen 21 Intake/Output Intake/Output: Intake & Output 07/28/23 07/29/23 07/30/23 07/31/23 23:59 23:59 23:59 23:59 Intake Total 3609.2 2150 3699.6 590 Output Total 3900 1950 900 Balance -290.8 200 2799.6 590 Meds/Results Medications: Active Medications Generic Name Dose Route Start Last Admin Trade Name Freq PRN Reason Stop Dose Admin Acetaminophen 650 mg 07/27/23 00:49 07/30/23 20:26 Acetaminophen 325 Mg Tablet PO 650 mg Q4H PRN Administration Mild Pain (1-3) or Fever Dicyclomine HCl 20 mg 07/27/23 04:57 07/28/23 04:47 Dicyclomine Hcl 10 Mg Capsule PO 20 mg QID PRN Administration abdominal discomfort Enoxaparin Sodium 40 mg 07/27/23 09:00 07/31/23 08:41 Enoxaparin 40 Mg/0.4 Ml Syringe SUB-Q 40 mg DAILY RACHEAL Administration Sodium Chloride 1,000 mls @ 125 mls/hr 07/27/23 00:35 07/31/23 01:14 Normal Saline Iv IV CONT 125 mls/hr .Q8H RACHEAL Administration Morphine Sulfate 2 mg 07/27/23 00:35 07/30/23 07:49 Morphine Sulfate (*Crx) 2 Mg/Ml Inj IV PUSH 2 mg Q2H PRN Administration Pain Rated 7-10 Ondansetron HCl 4 mg 07/27/23 00:35 07/31/23 06:35 Ondansetron Inj 4 Mg/2 Ml Vial IV PUSH 4 mg Q4H PRN Administration Nausea Pantoprazole Sodium 40 mg 07/27/23 14:25 07/31/23 08:42 Pantoprazole Sodium Iv 40 Mg Vial IV PUSH 40 mg QAM RACHEAL Administration Prochlorperazine Edisylate 10 mg 07/27/23 13:40 07/30/23 07:49 Prochlorperazine Edisylate 10 Mg/2 Ml Vial IV PUSH 10 mg Q6H PRN Administration Nausea And Vomiting Rosuvastatin Calcium 5 mg 07/27/23 09:00 07/31/23 08:42 Rosuvastatin 5 Mg Tablet PO 5 mg DAILY RACHEAL Administration Tramadol HCl 50 mg 07/31/23 07:46 Tramadol Hcl (*Crx) 50 Mg Tablet PO Q4H PRN Pain Rated 4-6 Radiology Results: ITS Impressions Abdomen Ultrasound 07/27/23 07:42 IMPRESSION: 1: Normal limited abdominal ultrasound. A
[2023-07-31 10:26] VITALS: BP 144/69; PULSE 68; RESP 16; TEMP 36.6; O2SAT 100
[2023-07-31] MEDS: traMADol HCL (*CRX) 50 MG TABLET PO (11:56)
--- NOTE | 2023-07-31 14:12 | PM.DS ---
DS: Admitting Diagnosis Discharge Date 07/31/23 Admitting Diagnosis Abdominal pain DS: Discharge Diagnosis Discharge Diagnosis (1) Chronic cholecystitis: Code(s): K81.1 - Chronic cholecystitis Status: Acute (2) Right upper quadrant abdominal pain: Code(s): R10.11 - Right upper quadrant pain Status: Acute (3) Compression fracture: Status: Acute (4) Nausea and vomiting: Qualifiers: Vomiting type: unspecified Qualified Code(s): R11.2 - Nausea with vomiting, unspecified Code(s): R11.2 - Nausea with vomiting, unspecified Status: Acute DS: Summary Hospital Course Reason for hospitalization: 63yo female with HLD here for right upper quadrant abdominal pain.?Please see H&P for details. Hospital Course: Patient presents with right upper quadrant abdominal pain that travels to her back with nausea and vomiting. WBC, lipase and Lactic acid were normal. CT abdomen and pelvis w/o contrast was normal. Right upper quadrant ultrasound was normal. CTA abdomen and pelvis showing no significant arterial occlusive disease. EGD was normal. HIDA with EF 25% and it reproduced her symptoms. GenSurg consulted and patient underwent cholecystectomy. Patient with a history of compression fracture. CT showing chronic moderate T12 and moderate-severe L5 compression fracture. Patient was advised to get a DEXA scan and consult pain clinic if needed. Post surgery, patient was up walking in the halls. She has tolerated two meals without recurrent symptoms. She overall did well and was able to be discharged home on 07/31/23. Status at Discharge Cognitive/behavioral status at discharge: stable Time Spent with Patient Time attestation: Total time spent providing and/or coordinating discharge services: 32 minutes Time spent: Greater than 30 minutes Exam Narrative: AF 97.9 144/69 68 16 100% ra Gen - NARD Chest - CTA bilaterally, nml RR CV - RRR S1/S2 Abd - Soft, ND, +BS, incisions are clean, dry and intact. Ext - No pedal edema Psych - Nml mood and affect Skin - Warm and dry DS: Data Data Completed and Pending Completed studies during hospitalization: Pending at discharge 07/28/23 11:45 Surgical [PTH] Routine 07/30/23 13:27 Surgical [PTH] Routine Labs on day of discharge: Labs from last 24 hours 07/31/23 04:44 WBC 11.2 H RBC 4.07 L Hgb 12.1 Hct 36.6 L MCV 89.9 MCH 29.7 MCHC 33.1 RDW 12.2 Plt Count 233 MPV 10.1 Immature Gran % (Auto) 0.4 Neut % (Auto) 80.5 H Lymph % (Auto) 9.5 L [place] % (Auto) 9.4 H Eos % (Auto) 0.1 Baso % (Auto) 0.1 L Lymph # (Auto) 1.07 [place] # (Auto) 1.1 H Eos # (Auto) 0.0 Baso # (Auto) 0.0 Abs Immat Gran (auto) 0.05 H Absolute Neuts (auto) 9.0 H Absolute Nucleated RBC 0.000 Nucleated RBC % 0.0 Sodium 135 L Potassium 3.5 Chloride 105 Carbon Dioxide 25 Anion Gap 5 BUN 7 Creatinine 0.60 L Estim Creat Clear Calc 78 Estimated GFR > 60 Glucose 103 Calcium 8.2 L Total Bilirubin 0.6 AST 39 H ALT 31 Alkaline Phosphatase 85 Total Protein 6.0 L Albumin 3.7 Preliminary micro results at discharge 07/27/23 01:09 Blood Culture - Preliminary Blood 07/27/23 01:09 Blood Culture - Preliminary Blood Discharge Plan Discharge Attending physician on discharge: Niranjan Sanchez Consulting providers: Tanner Mckenzie Pei Chang Discharging Clinician: Niranjan Sanchez Anticipated Discharge Date/Time: 07/31/23 14:18 Patient Disposition: Home, Self-Care Activity: may shower and as tolerated Diet: low fat Wound Care Instructions: incision open to air Discharge Instructions: DISCHARGE INSTRUCTION SHEET FOR HERNIA, GALLBLADDER AND APPENDIX SURGERIES DR. CHAVIRA PATIENT TO TAKE HOME 1. May shower in 24 hours, no soaking in bath x 2weeks. 2. Call office for: Wound increasingly painful or bleeding Vomiting Fever of grea
== END 2023-07-31 14:40 | disposition home or self-care (01) ==
LOC: ANHED 07-27 00:39 → ANH2MED 07-27 01:26
PROVIDERS: Internal Medicine Gastroenterology; Surgery; Admitting Provider Internal Medicine; Emergency Provider Emergency Medicine; PCP Internal Medicine; Visit Provider Nurse Practitioner Acute Care
PROC: 0DJ08ZZ Inspection of Upper Intestinal Tract, Via Natural or Artificial Opening Endoscopic (ICD-10-PCS; CPT 43235; principal; 2023-07-28 17:00)
PROC: 0FT44ZZ Resection of Gallbladder, Percutaneous Endoscopic Approach (ICD-10-PCS; CPT 47562; principal; 2023-07-30 13:00)
DX: K81.1 Chronic cholecystitis (principal); E87.6 Hypokalemia; M48.54XA Collapsed vertebra, not elsewhere classified, thoracic region, initial encounter for fracture; M48.56XA Collapsed vertebra, not elsewhere classified, lumbar region, initial encounter for fracture; I10 Essential (primary) hypertension; M47.816 Spondylosis without myelopathy or radiculopathy, lumbar region; M48.061 Spinal stenosis, lumbar region without neurogenic claudication
CPT/HCPCS: 47562; 36415; 72148; 74174; 74177; 76705; 78227; 80053; 80061; 81001; 83605; 83690; 83735; 84484; 85025; 86140; 87040; 87086; 87088; 88304; 88305; 93005; 96361; 96365; 96374; 96375; 99285; A9270; A9537; C9113; G0378; J0690; J0780; J1100; J1170; J1650; J1885; J2250; J2270; J2405; J2543; J2704; J2805; J3010; J3480; J7030; J7040; J7120; Q9967